=== PATIENT | female | born 1970 | race African-American/Black ===

== ENCOUNTER → 2016-10-25 | Outpatient (CLI) | payer OTHER ==
[2016-10-25 08:05] LABS: ALBUMIN 3.4 g/dL (3.4-5.0); ALBUMIN/GLOBULIN RATIO 0.6 (1.0-1.7); CREATININE 1.2 mg/dL (0.6-1.0); GFR 58.5; TOTAL BILIRUBIN 0.3 mg/dL (0.2-1.0); TOTAL PROTEIN 8.8 g/dL (6.4-8.2)
[2016-10-25 08:09] LABS: CHOLESTEROL/HDL RATIO 3.7
== END | disposition home or self-care (01) ==
LOC: LAB 07:32
PROVIDERS: ATTEND Family Medicine
DX: E11.9 Type 2 diabetes mellitus without complications (principal)
CPT/HCPCS: 36415; 80053; 80061; 83036

== ENCOUNTER → 2016-12-13 | Outpatient (CLI) | payer OTHER ==
--- NOTE | 2016-12-13 08:39 | RAD ---
Indication:Right flank pain Grayscale images of the abdomen were obtained. Comparison none. Note is made of a CT examination of the abdomen and pelvis 10 years ago Liver:No focal mass lesion is seen in the visualized liver Gallbladder:Normal. The common bile duct diameter of approximately 4 mm is normal Spleen:Normal Pancreas:As visualized normal Kidneys:Normal Abdominal aorta and IVC:Normal Ancillary findings:None Impression:Normal study
== END | disposition home or self-care (01) ==
LOC: US 07:02
PROVIDERS: ATTEND Family Medicine
DX: R10.9 Unspecified abdominal pain (principal)
CPT/HCPCS: 76700

== ENCOUNTER 2017-02-06 08:56 | Emergency (ER) | payer OTHER ==
[~2017-02-06] VITALS: Ht 152.4 cm; Wt 92.1 kg
[2017-02-06] MEDS ORDERED: LIDOCAINE 1% / SOD BICARB 8.4% 20 ML VIAL. IJ ONE (09:20)
--- NOTE | 2017-02-06 09:25 | PHYS DOC ---
Past Medical History Past Medical History: Diabetes-Type II, Hypertension Past Surgical History: Hysterectomy Alcohol Use: None Drug Use: None Adult General Chief Complaint Chief Complaint: ABSCESS HPI HPI Patient is a 46 year old female who presents with complaint of an abscess on the right inner thigh. Patient states that this has been present for the past 3 days. Patient states that she has been applying warm compresses to the area but states that pain and swelling have been getting worse since onset. Patient states she has history of diabetes and is concerned about skin infection. Patient came to the emergency department as she feels that her abscess needs to be drained at this time. Patient has had no fevers, chills, nausea, or vomiting associated with her symptoms. Patient rates her pain 7 out of 10. Review of Systems Review of Systems Constitutional: Denies fever or chills [] Eyes: Denies change in visual acuity, redness, or eye pain [] HENT: Denies nasal congestion or sore throat [] Respiratory: Denies cough or shortness of breath [] Cardiovascular: Denies chest pain or edema [] GI: Denies abdominal pain, nausea, vomiting, bloody stools or diarrhea [] : Denies dysuria or hematuria [] Musculoskeletal: Denies back pain or joint pain [] Integument: Right thigh abscess [] Neurologic: Denies headache, focal weakness or sensory changes [] Current Medications Current Medications Current Medications Medications (Trade) Dose Ordered Sig/Clau Start Time Stop Time Status Last Admin Dose Admin Lidocaine/Sodium Bicarbonate (Buffered Lidocaine 1%) 20 ml STK-MED ONCE 02/06/17 09:20 02/06/17 09:21 DC Allergies Allergies Allergies Coded Allergies Type Severity Reaction Last Updated Verified codeine Allergy Unknown 02/06/17 Yes Physical Exam Physical Exam Constitutional: Alert, afebrile, no acute distress. [] HENT: Normocephalic, atraumatic, bilateral external ears normal, oropharynx moist, no oral exudates, nose normal. [] Eyes: PERRLA, EOMI, conjunctiva normal, no discharge. [] Neck: Normal range of motion, no tenderness, supple, no stridor. [] Cardiovascular:Heart rate regular rhythm, no murmur [] Lungs & Thorax: Bilateral breath sounds clear to auscultation [] Abdomen: Bowel sounds normal, soft, no tenderness, no masses, no pulsatile masses. [] Skin: Warm, dry, 2 cm swollen indurated lesion that is tender to palpation on right medial thigh no fluctuance. [] Back: No tenderness, no CVA tenderness. [] Extremities: No tenderness, no cyanosis, no clubbing, ROM intact, no edema. [] Neurologic: Alert and oriented X 3, normal motor function, normal sensory function, no focal deficits noted. [] Current Patient Data Vital Signs Vital Signs Date Time Temp Pulse Resp B/P (MAP) Pulse Ox O2 Delivery O2 Flow Rate FiO2 02/06/17 09:00 100.1 102 16 96 Room Air 100.1 EKG EKG Not performed [] Radiology/Procedures Radiology/Procedures Not performed [] Course & Med Decision Making Course & Med Decision Making Pertinent Labs and Imaging studies reviewed. (See chart for details) After evaluating the patient, I gave her 2 options for treatment including antibiotics with follow-up in 2 days for reevaluation after maturation of abscess versus incision and drainage today. After carefully wearing her options , the patient asked that we perform incision and drainage on her abscess today. The abscess was drained as outlined in the procedure note. Patient started on Bactrim therapy. Advise follow-up in 2-[address] Healy for reevaluation and removal of packing. Advised return to the emergency department for any worsening symptoms. Patient voiced understanding and in agreement with treatment plan. Dragon Disclaimer Dragon Disclaimer This electronic medical record was generated, in whole or in part, using a voice recognition dictation system. Incision and Drainage Indication: abscess Procedure: The patient was positioned appropriately. Local anesthesia was achieved with injection of buffered lidocaine 1%. An incision was then made over the apex of the lesion and drainage of 1 mL of purulent material was expressed. The drainage cavity was packed with iodoform gauze. The patients tetanus status updated as needed. The patient tolerated the procedure well. Complications: none. Departure Departure Impression: Primary Impression: Abscess of right thigh Disposition: 01 HOME, SELF-CARE Condition: IMPROVED Referrals: DAVID HEALY MD (PCP) Patient Instructions: Abscess, Care After Additional Instructions: Follow-up in 2-[address] Healy for reevaluation and removal of your wound packing. If your packing comes out on its own, do not replace it. Place a clean bandage over the wound site until your follow-up appointment. Return to the emergency department for any worsening symptoms. Scripts Sulfamethoxazole/Trimethoprim (BACTRIM DS TABLET) 1 Each Tablet 1 TAB PO BID, #20 TAB Prov: LOLLY TAYLOR MD 02/06/17 LOLLY TAYLOR MD Feb 06, 2017 09:25
[2017-02-06] MEDS ORDERED: SULF1TAB24 PO (10:01)
[2017-02-06 10:06] VITALS: BP 176/83
[2017-02-08] MEDS ORDERED: AMLO1CAP10 PO (14:37)
[2017-02-08] MEDS ORDERED: ATEN50TA PO (14:37)
[2017-02-08] MEDS ORDERED: POTA20TA82 PO (14:37)
[2017-02-08] MEDS ORDERED: TRIA1TAB3 PO (14:37)
[2017-02-08] MEDS ORDERED: INSU100V13 SQ (14:37)
[2017-02-08] MEDS ORDERED: INSU100I17 SQ (14:37)
== END 2017-02-06 10:07 | disposition home or self-care (01) ==
LOC: ER 08:56
DX: L02.415 Cutaneous abscess of right lower limb (principal); E11.9 Type 2 diabetes mellitus without complications; I10 Essential (primary) hypertension; Z90.710 Acquired absence of both cervix and uterus; Z88.5 Allergy status to narcotic agent
CPT/HCPCS: 10060; 99283-25

== ENCOUNTER 2017-12-30 13:16 | Emergency (ER) | payer OTHER ==
[2017-12-30] MEDS: LIDOCAINE WITH 8.4% SOD BICARB 3 ML DISP.SYRIN. INJ (14:30)
[2017-12-30] MEDS: DIPHTH,PERTUSS(ACELL),TET TOX 0.5 ML DISP.SYRIN. VAX IM (14:31)
== END 2017-12-30 14:36 | disposition home or self-care (01) ==
LOC: ER 13:16
DX: S31.821A Laceration without foreign body of left buttock, initial encounter (principal); E11.9 Type 2 diabetes mellitus without complications; E87.6 Hypokalemia; I10 Essential (primary) hypertension; Z88.5 Allergy status to narcotic agent; W26.0XXA Contact with knife, initial encounter; Y93.89 Activity, other specified; Y92.89 Other specified places as the place of occurrence of the external cause; Y99.8 Other external cause status
CPT/HCPCS: 12002; 73502; 90471; 90715; 99284

== ENCOUNTER → 2018-01-02 | Outpatient (CLI) | payer OTHER ==
[2018-01-02 08:03] LABS: ALBUMIN 3.7 g/dL (3.4-5.0); ALBUMIN/GLOBULIN RATIO 0.7 (1.0-1.7); ALK PHOS 77 U/L (46-116); ALT (SGPT) 28 U/L (14-59); ANION GAP 9 (6-14); AST (SGOT) 20 U/L (15-37); BLOOD UREA NITROGEN 12 mg/dL (7-20); BUN/CREATININE RATIO 9 (6-20); CALCIUM 8.6 mg/dL (8.5-10.1); CARBON DIOXIDE 28 mmol/L (21-32); CHLORIDE 102 mmol/L (98-107); CHOLESTEROL 202 mg/dL (0-200); CREATININE 1.3 mg/dL (0.6-1.0); GFR 53.1; GLUCOSE 222 mg/dL (70-99); HDLC 46 mg/dL (40-60); LDLC 128 mg/dL (0-100); NON-HDL CHOLESTEROL 156 mg/dL (0-129); POTASSIUM 3.4 mmol/L (3.5-5.1); SODIUM 139 mmol/L (136-145); TOTAL BILIRUBIN 0.3 mg/dL (0.2-1.0); TOTAL PROTEIN 9.1 g/dL (6.4-8.2); TRIGLYCERIDES 141 mg/dL (0-150); VLDLC 28 mg/dL (0-40)
[2018-01-02 08:04] LABS: CHOLESTEROL/HDL RATIO 4.4
[2018-01-03 04:17] LABS: HEMOGLOBIN A1C 6.9 % (4.8-5.6)
== END | disposition home or self-care (01) ==
LOC: LAB 07:28
DX: E11.9 Type 2 diabetes mellitus without complications (principal); E78.5 Hyperlipidemia, unspecified
CPT/HCPCS: 36415; 80053; 80061; 83036

== ENCOUNTER → 2018-07-03 | Outpatient (CLI) | payer OTHER ==
[2017-12-30 13:20] VITALS: BP 187/93
[~2018-07-03] MED LIST: AMLO1CAP10 PO; AMOX1TAB61 PO; ATEN50TA PO; INSU100I17 SQ; INSU100V13 SQ; POTA20TA82 PO; SULF1TAB24 PO; TRIA1TAB3 PO
[2018-07-03 08:03] LABS: BASO # 0.1 x10^3/uL (0.0-0.2); BASO % 1 % (0-3); EOS # 0.2 x10^3/uL (0.0-0.7); EOS % 3 % (0-3); HEMATOCRIT 41.6 % (36.0-47.0); LYMPH # 3.7 x10^3/uL (1.0-4.8); LYMPH % 53 % (24-48); MEAN CORPUSCULAR HEMOGLOBIN 30 pg (25-35); MEAN CORPUSCULAR HGB CONC 34 g/dL (31-37); MEAN CORPUSCULAR VOLUME 90 fL (79-100); MONO # 0.7 x10^3/uL (0.0-1.1); MONO % 10 % (0-9); NEUT # 2.3 x10^3uL (1.8-7.7); NEUT % 34 % (31-73); PLATELET COUNT 272 x10^3/uL (140-400); RED CELL DISTRIBUTION WIDTH 16.2 % (11.5-14.5); WHITE BLOOD COUNT 6.9 x10^3/uL (4.0-11.0)
[2018-07-03 08:25] LABS: ALBUMIN 3.3 g/dL (3.4-5.0); ALBUMIN/GLOBULIN RATIO 0.6 (1.0-1.7); CALCIUM 9.1 mg/dL (8.5-10.1); CREATININE 1.2 mg/dL (0.6-1.0); GFR 58.3; POTASSIUM 3.2 mmol/L (3.5-5.1); TOTAL BILIRUBIN 0.2 mg/dL (0.2-1.0); TOTAL PROTEIN 8.8 g/dL (6.4-8.2)
[2018-07-03 08:31] LABS: CHOLESTEROL/HDL RATIO 2.8
[2018-07-03 23:11] LABS: HEMOGLOBIN A1C 7.6 % (4.8-5.6)
== END | disposition home or self-care (01) ==
LOC: LAB 07:34
PROVIDERS: ATTEND Family Medicine
DX: E11.9 Type 2 diabetes mellitus without complications (principal); E78.5 Hyperlipidemia, unspecified
CPT/HCPCS: 36415; 80053; 80061; 83036; 85025

== ENCOUNTER 2018-07-16 20:34 | Observation (INO) | payer OTHER ==
[~2018-07-16] VITALS: Ht 152.4 cm; Wt 93.9 kg
[2018-07-16] MEDS ORDERED: IV NORMAL SALINE 1000ML BAG 1,000 ML IV ONE (21:15)
--- NOTE | 2018-07-16 21:19 | PHYS DOC ---
Past Medical History Past Medical History: Diabetes-Type II, Hypertension Additional Past Medical Histor: Hypokalemia Past Surgical History: Other Additional Past Surgical Histo: Thigh Alcohol Use: Rarely Drug Use: None Adult General Chief Complaint Chief Complaint: FLANK PAIN HPI HPI 47-year-old female presents to ER with complaints of mid to left side abdominal pain which is been ongoing over the past 3 weeks. Patient reports pain has been gradually worsening and her abdomen feels more distended. Patient reports symptoms started on 06/27/18 a day after her father . Patient reports pain is "pinching" in nature and is constant. Patient reports current pain at 9/10. Patient states she does have increased pain after eating. She denies any nausea or vomiting. Patient reports she had regular bowel movement today. Patient reports she has had some difficulty starting her urination however denies dysuria or hematuria. She reports on Tuesday Dr. Healy her primary care physician changed her blood pressure medication increasing her atenolol to 100 mg and DC'd her Triamterene/HCTZ. Patient denies any chest pain , palpitations, or shortness of air. Patient denies fever, urinary symptoms, or vaginal issues. Patient reports history of hysterectomy. Bilateral blood sugar during initial exam left 184/88 right 183/80. Patient reports last blood sugar at home was 130. Review of Systems Review of Systems Constitutional: Denies fever or chills. Eyes: Denies change in visual acuity, redness, or eye pain [] HENT: Denies nasal congestion or sore throat [] Respiratory: Denies cough or shortness of breath [] Cardiovascular: No chest pain or palpitations GI: Denies nausea, vomiting, bloody stools or diarrhea. Reports mid to left side abdominal pain with abdominal distention. : Denies dysuria or hematuria. Reports difficulty initiating urination. Musculoskeletal: Denies neck pain or joint pain. Reports abdominal pain does radiate into left flank area Integument: Denies rash, swelling or skin lesions [] Neurologic: Denies headache, focal weakness or sensory changes [] Endocrine: Denies polyuria or polydipsia [] All other systems were reviewed and found to be within normal limits, except as documented in this note. Current Medications Current Medications Current Medications Medications (Trade) Dose Ordered Sig/Clau Start Time Stop Time Status Last Admin Dose Admin Info (CONTRAST GIVEN -- Rx MONITORING) 1 each PRN DAILY PRN 07/16/18 22:00 07/18/18 11:14 DC Iohexol (Omnipaque 300 Mg/ml) 75 ml 1X ONCE 07/16/18 22:00 07/16/18 22:01 DC 07/16/18 22:08 75 ML Morphine Sulfate (Morphine Sulfate) 4 mg PRN Q3HRS PRN 07/16/18 23:15 07/17/18 23:14 DC 07/16/18 23:30 4 MG Potassium Chloride (Klor-Con) 40 meq 1X ONCE 07/16/18 23:15 07/16/18 23:16 DC 07/16/18 23:26 40 MEQ Sodium Chloride 1,000 ml @ 100 mls/hr Q10H 07/16/18 23:00 07/17/18 22:59 DC 07/17/18 17:34 100 MLS/HR Allergies Allergies Allergies Coded Allergies Type Severity Reaction Last Updated Verified codeine Adverse Reaction Intermediate Hallucinations 02/08/17 Yes Physical Exam Physical Exam Constitutional: Well developed, well nourished, no acute distress, non-toxic appearance. Patient became tearful during initial examination. HENT: Normocephalic, atraumatic, mucous membranes pink/dry, no oral exudates, nose normal. [] Eyes: Pupils equal, conjunctiva normal, no discharge. [] Neck: Normal range of motion, no tenderness, supple, no stridor. [] Cardiovascular: Heart rate regular rhythm, no murmur [] Lungs & Thorax: Bilateral breath sounds clear to auscultation. Resp. equal/ nonlabored Abdomen: Bowel sounds normal, soft distended abd- no rigidity, no tenderness, no masses, no pulsatile masses. [] Skin: Warm, dry, no erythema, no rash. [] Back: No tenderness, mild lt side flank pain Extremities: No tenderness, no cyanosis, no clubbing, ROM intact, no edema. [] Neurologic: Alert and oriented X 3, normal motor function, normal sensory function, no focal deficits noted. [] Psychologic: Affect normal, judgement normal, mood normal. She reports she has had some increased anxiety since her father on 06/26/13. She reports anxiety has improved after receiving sleep medication from her primary care physician. She denies any suicidal ideations or uncontrollable behavior. Current Patient Data Vital Signs Vital Signs Date Time Temp Pulse Resp B/P (MAP) Pulse Ox O2 Delivery O2 Flow Rate FiO2 07/16/18 23:00 87 21 160/76 (104) 93 Room Air 07/16/18 20:52 98.7 98.7 Lab Values Laboratory Tests Test 07/16/18 20:42 07/16/18 21:06 Urine Collection Type Unknown Urine Color Yellow Urine Clarity Clear Urine pH 5.5 Urine Specific [place] 1.015 Urine Protein Negative mg/dL (NEG-TRACE) Urine Glucose (UA) Negative mg/dL (NEG) Urine Ketones (Stick) Negative mg/dL (NEG) Urine Blood Small (NEG) Urine Nitrite Negative (NEG) Urine Bilirubin Negative (NEG) Urine Urobilinogen Dipstick 0.2 mg/dL (0.2 mg/dL) Urine Leukocyte Esterase Negative (NEG) Urine RBC Occ /HPF (0-2) Urine WBC Occ /HPF (0-4) Urine Squamous Epithelial Cells Many /LPF Urine Bacteria Moderate /HPF (0-FEW) Urine Mucus Mod /LPF White Blood Count 8.8 x10^3/uL (4.0-11.0) Red Blood Count 4.52 x10^6/uL (3.50-5.40) Hemoglobin 13.7 g/dL (12.0-15.5) Hematocrit 40.3 % (36.0-47.0) Mean Corpuscular Volume 89 fL (79-100) Mean Corpuscular Hemoglobin 30 pg (25-35) Mean Corpuscular Hemoglobin Concent 34 g/dL (31-37) Red Cell Distribution Width 15.8 % (11.5-14.5) H Platelet Count 261 x10^3/uL (140-400) Neutrophils (%) (Auto) 62 % (31-73) Lymphocytes (%) (Auto) 30 % (24-48) Monocytes (%) (Auto) 7 % (0-9) Eosinophils (%) (Auto) 1 % (0-3) Basophils (%) (Auto) 1 % (0-3) Neutrophils # (Auto) 5.4 x10^3uL (1.8-7.7) Lymphocytes # (Auto) 2.7 x10^3/uL (1.0-4.8) Monocytes # (Auto) 0.6 x10^3/uL (0.0-1.1) Eosinophils # (Auto) 0.1 x10^3/uL (0.0-0.7) Basophils # (Auto) 0.0 x10^3/uL (0.0-0.2) Sodium Level 139 mmol/L (136-145) Potassium Level 2.7 mmol/L (3.5-5.1) *L Chloride Level 102 mmol/L (98-107) Carbon Dioxide Level 27 mmol/L (21-32) Anion Gap 10 (6-14) Blood Urea Nitrogen 10 mg/dL (7-20) Creatinine 1.2 mg/dL (0.6-1.0) H Estimated GFR (Cockcroft-Gault) 58.3 BUN/Creatinine Ratio 8 (6-20) Glucose Level 88 mg/dL (70-99) Calcium Level 9.0 mg/dL (8.5-10.1) Total Bilirubin 0.2 mg/dL (0.2-1.0) Aspartate Amino Transferase (AST) 20 U/L (15-37) Alanine Aminotransferase (ALT) 32 U/L (14-59) Alkaline Phosphatase 71 U/L (46-116) Troponin I Quantitative < 0.017 ng/mL (0.000-0.055) Total Protein 9.0 g/dL (6.4-8.2) H Albumin 3.6 g/dL (3.4-5.0) Albumin/Globulin Ratio 0.7 (1.0-1.7) L Lipase 411 U/L (73-393) H Laboratory Tests 07/16/18 21:06 Laboratory Tests 07/16/18 21:06 Microbiology 07/16/18 Urine Culture - Final, Complete 07/16/18 Urine Culture Result 1 (PENELOPE) - Final, Complete EKG EKG EKG obtained at 2117 Interpreted by ER physician Sinus Rhythm Prolonged QT Rate 85 No STEMI Radiology/Procedures Radiology/Procedures PROCEDURE: CT ABD PELV W/ IV CONTRST ONLY CT abdomen and pelvis with IV contrast 07/16/2018. Reason for exam: Left-sided pain. CT images were made through the abdomen and pelvis using an infusion of 60 mL Omnipaque 300. No oral contrast was given. Exposure: One or more of the following individualized dose reduction techniques were utilized for this examination: 1. Automated exposure control 2. Adjustment of the mA and/or kV according to patient size 3. Use of iterative reconstruction technique. FINDINGS: The lung bases are clear. The liver and spleen are homogeneous in density and normal in configuration. Both kidneys enhance with contrast. No mass or obstruction is seen. The adrenal glands are not enlarged. No pancreatic mass or localized fluid collection is seen. There is mild inflammation surrounding the body and tail of the pancreas, suggesting pancreatitis. The pancreas appears to enhance homogeneously. No retroperitoneal or mesenteric adenopathy is seen. There is no apparent abdominal mass or other inflammatory process. Images through the pelvis show no abnormality of the distal ureters or bladder. No pelvic or inguinal adenopathy is seen. There is no separate pelvic mass or other inflammatory process. IMPRESSION: Findings suggest mild pancreatitis centered at the body and tail of the pancreas. Electronically signed by: Angely Duenas Jr., MD (07/16/2018 10:24 PM) [facility] DICTATED and SIGNED BY: ANGELY DUENAS Jr, MD DATE: 07/16/182221 Course & Med Decision Making Course & Med Decision Making Pertinent Labs and Imaging studies reviewed. (See chart for details) 2235: Discussed test results with pt- mild pancreatitis on CT abd/pelvis and labs with K+ 2.7- which will be replaced with 40meq PO K+ in ER and lipase 411. EKG with no acute ST elevation/STEMI and troponin <0.017. IV flds have been given while test were pending. Pt became tearful discussing home discharge plans - she has concerns on being discharged and is preferring admission for further monitoring/care. Pt has been stable/nontoxic in appearance but has been quite emotional during discussions. She is wanting her PCP called to discuss admit vs home discharge and is requesting additional dose of pain med as her abd pain has increased. She has had no active vomiting episodes while in ER. Will call Dr. Healy and discussed pt's case. 2245: Spoke with Dr. Healy and discussed pt's case and she is agreeable with admit plan. Will order a.m. labs and IV flds/pain meds with admit orders. Will order additional dose of PO K+. Dragon Disclaimer Dragon Disclaimer This electronic medical record was generated, in whole or in part, using a voice recognition dictation system. Departure Departure Impression: Primary Impression: Pancreatitis Additional Impression: Hypokalemia Disposition: ADMITTED INPATIENT Admitting Physician: Serena Healy Condition: STABLE Referrals: SERENA HEALY MD (PCP) Scripts Amlodipine Besylate/Benazepril (AMLODIPINE-BENAZEPRIL 5-20 MG) 1 Each Capsule 2 CAP PO DAILY for HTN, #30 CAP 5 Refills Prov: SERENA HEALY MD 07/17/18 Insulin Glargine,Hum.rec.anlog (LANTUS SOLOSTAR) 100 Unit/1 Ml Insuln.pen 40 UNIT SQ QHS for DM, #15 ML 3 Refills Prov: SERENA HEALY MD 07/17/18 Problem Qualifiers ROB BIRD CIRCUIT RECORDER Jul 16, 2018 21:18
[2018-07-16 21:27] LABS: BASO % 1 % (0-3); EOS # 0.1 x10^3/uL (0.0-0.7); EOS % 1 % (0-3); HEMATOCRIT 40.3 % (36.0-47.0); HEMOGLOBIN 13.7 g/dL (12.0-15.5); LYMPH # 2.7 x10^3/uL (1.0-4.8); LYMPH % 30 % (24-48); MEAN CORPUSCULAR HEMOGLOBIN 30 pg (25-35); MEAN CORPUSCULAR HGB CONC 34 g/dL (31-37); MEAN CORPUSCULAR VOLUME 89 fL (79-100); MONO # 0.6 x10^3/uL (0.0-1.1); MONO % 7 % (0-9); NEUT # 5.4 x10^3uL (1.8-7.7); NEUT % 62 % (31-73); PLATELET COUNT 261 x10^3/uL (140-400); RED BLOOD COUNT 4.52 x10^6/uL (3.50-5.40); RED CELL DISTRIBUTION WIDTH 15.8 % (11.5-14.5); WHITE BLOOD COUNT 8.8 x10^3/uL (4.0-11.0)
[2018-07-16 21:28] LABS: BILIRUBIN,URINE NEGATIVE (NEG); CLARITY,URINE CLEAR; COLOR,URINE YELLOW; NITRITE,URINE NEGATIVE (NEG); PH,URINE 5.5; PROTEIN,URINE NEGATIVE (NEG-TRACE); UROBILINOGEN,URINE 0.2 mg/dL (0.2 mg/dL)
[2018-07-16 21:32] LABS: BACTERIA,URINE MODERATE /HPF (0-FEW); RBC,URINE OCC /HPF (0-2); SQUAMOUS EPITHELIAL CELL,UR MANY /LPF; WBC,URINE OCC /HPF (0-4)
[2018-07-16 21:46] LABS: ALBUMIN 3.6 g/dL (3.4-5.0); ALBUMIN/GLOBULIN RATIO 0.7 (1.0-1.7); CREATININE 1.2 mg/dL (0.6-1.0); GFR 58.3; TOTAL BILIRUBIN 0.2 mg/dL (0.2-1.0)
[2018-07-16 21:47] LABS: POTASSIUM 2.7 mmol/L (3.5-5.1)
[2018-07-16] MEDS ORDERED: IOHEXOL 300 MG/ML 100ML VIAL. IV ONE (22:00)
[2018-07-16] MEDS ORDERED: CONTRAST GIVEN. MC PRN (22:00)
--- NOTE | 2018-07-16 22:28 | RAD ---
CT abdomen and pelvis with IV contrast 07/16/2018. Reason for exam: Left-sided pain. CT images were made through the abdomen and pelvis using an infusion of 60 mL Omnipaque 300. No oral contrast was given. Exposure: One or more of the following individualized dose reduction techniques were utilized for this examination: 1. Automated exposure control 2. Adjustment of the mA and/or kV according to patient size 3. Use of iterative reconstruction technique. FINDINGS: The lung bases are clear. The liver and spleen are homogeneous in density and normal in configuration. Both kidneys enhance with contrast. No mass or obstruction is seen. The adrenal glands are not enlarged. No pancreatic mass or localized fluid collection is seen. There is mild inflammation surrounding the body and tail of the pancreas, suggesting pancreatitis. The pancreas appears to enhance homogeneously. No retroperitoneal or mesenteric adenopathy is seen. There is no apparent abdominal mass or other inflammatory process. Images through the pelvis show no abnormality of the distal ureters or bladder. No pelvic or inguinal adenopathy is seen. There is no separate pelvic mass or other inflammatory process. IMPRESSION: Findings suggest mild pancreatitis centered at the body and tail of the pancreas. Electronically signed by: Florencio Duenas Jr., MD (07/16/2018 10:24 PM) [facility]
[2018-07-16] MEDS ORDERED: MORPHINE SULFATE 4 MG/ML VIAL. IV ONE (23:00)
[2018-07-16] MEDS ORDERED: POTASSIUM CHLORIDE 20 MEQ TABLET.ER. PO ONE (23:15)
[2018-07-16] MEDS ORDERED: MORPHINE SULFATE 4 MG/ML VIAL. IV PRN (23:15)
[2018-07-16] MEDS: IV NORMAL SALINE 1000ML BAG 1,000 ML IV SCH (23:26)
[2018-07-17] VITALS (7 sets, daily range): BP systolic 128–152; BP diastolic 65–81
[2018-07-17] MEDS ORDERED: ATEN100T PO (01:07)
[2018-07-17] MEDS ORDERED: POTA20TA4 PO (01:11)
[2018-07-17] MEDS ORDERED: GABA-585 PO (01:11)
[2018-07-17] MEDS ORDERED: ZOLP5TAB5 PO (01:11)
[2018-07-17] MEDS ORDERED: ATOR10TA60 PO (01:11)
[2018-07-17] MEDS ORDERED: POTASSIUM CHLORIDE 20 MEQ TABLET.ER. PO ONE (02:00)
--- NOTE | 2018-07-17 06:37 | EKG ---
[facility] [address] [place] [address] Test Date: 2018-07-16 Test Time: 21:17:06 Pat Name: STU LEON Department: Room: 420 Gender: F Steward/Stewardess Smoke Room: : 1970 Requested By: ROB BIRD Order Number: [id number] Reading MD: Wayne Box Measurements Intervals Molt Rate: 85 P: 52 NM: 168 QRS: 6 QRSD: 84 T: 34 QT: 442 QTc: 526 Interpretive Statements SINUS RHYTHM PROLONGED QT Electronically Signed On 07-17-2018 9:16:50 DUE DILIGENCE COORDINATOR by Wayne Box
[2018-07-17 07:22] LABS: BASO % 1 % (0-3); EOS % 0 % (0-3); HEMATOCRIT 39.8 % (36.0-47.0); HEMOGLOBIN 13.5 g/dL (12.0-15.5); LYMPH # 1.5 x10^3/uL (1.0-4.8); LYMPH % 22 % (24-48); MEAN CORPUSCULAR HEMOGLOBIN 31 pg (25-35); MEAN CORPUSCULAR HGB CONC 34 g/dL (31-37); MEAN CORPUSCULAR VOLUME 90 fL (79-100); MONO # 0.3 x10^3/uL (0.0-1.1); MONO % 5 % (0-9); NEUT # 4.9 x10^3uL (1.8-7.7); NEUT % 73 % (31-73); PLATELET COUNT 242 x10^3/uL (140-400); RED BLOOD COUNT 4.42 x10^6/uL (3.50-5.40); WHITE BLOOD COUNT 6.8 x10^3/uL (4.0-11.0)
[2018-07-17 07:40] LABS: ALBUMIN 3.1 g/dL (3.4-5.0); ALBUMIN/GLOBULIN RATIO 0.6 (1.0-1.7); CALCIUM 8.4 mg/dL (8.5-10.1); CREATININE 1.1 mg/dL (0.6-1.0); GFR 64.4; POTASSIUM 3.6 mmol/L (3.5-5.1); TOTAL BILIRUBIN 0.4 mg/dL (0.2-1.0); TOTAL PROTEIN 8.1 g/dL (6.4-8.2)
[2018-07-17] MEDS ORDERED: INSU100I13 SQ (08:29)
[2018-07-17] MEDS ORDERED: AMLO1CAP10 PO (08:29)
--- NOTE | 2018-07-17 08:39 | PDOC ---
PROGRESS NOTES Subjective Subjective Patient reports L.sided abdominal pain still present but much improved with pain medication. Objective Objective Vital Signs Date Time Temp Pulse Resp B/P (MAP) Pulse Ox O2 Delivery O2 Flow Rate FiO2 07/17/18 03:17 97.9 79 20 128/73 (91) 95 Room Air 97.9 Intake and Output 07/17/18 07:00 Intake Total 600 ml Balance 600 ml Intake Oral 0 ml IV Total 300 ml Other 300 ml # Voids 2 Physical Exam Abdomen: Normal bowel sounds, Soft, Other ( mild L. sided abdominal TTP without guarding or rebound) Heart: Regular rate Extremities: No edema General: Alert, Oriented X3, No acute distress Lungs: Clear to auscultation Assessment Assessment Problems Medical Problems: (1) Hypokalemia Status: Acute (2) Pancreatitis Status: Acute Plan Plan of Care 1. Pancreatitis - lab improved overnight with NPO and IVF. Patient does not drink alcohol to excess and her triglycerides were WNL on last office lab. Patient does still have her gallbladder, so abdominal U/S ordered and GI consulted to help with further tx. Continue NPO with ice chips. IV pain medication as needed. Does take low dose statin, will hold at this time. 2. DM2 - glucose elevated this AM as patient did not receive her HS insulin last night. Home insulins ordered. 3. HTN - resume home meds. 4. hypokalemia - improved on lab today. Resume her usual po supplement. 5. insomnia - well controlled with Ambien, continue. Comment Review of Relevant I have reviewed the following items anushka (where applicable) has been applied. Labs Laboratory Tests Test 07/16/18 20:42 07/16/18 21:06 07/17/18 06:25 07/17/18 08:13 Urine Collection Type Unknown Urine Color Yellow Urine Clarity Clear Urine pH 5.5 Urine Specific [place] 1.015 Urine Protein Negative mg/dL (NEG-TRACE) Urine Glucose (UA) Negative mg/dL (NEG) Urine Ketones (Stick) Negative mg/dL (NEG) Urine Blood Small (NEG) Urine Nitrite Negative (NEG) Urine Bilirubin Negative (NEG) Urine Urobilinogen Dipstick 0.2 mg/dL (0.2 mg/dL) Urine Leukocyte Esterase Negative (NEG) Urine RBC Occ /HPF (0-2) Urine WBC Occ /HPF (0-4) Urine Squamous Epithelial Cells Many /LPF Urine Bacteria Moderate /HPF (0-FEW) Urine Mucus Mod /LPF White Blood Count 8.8 x10^3/uL (4.0-11.0) 6.8 x10^3/uL (4.0-11.0) Red Blood Count 4.52 x10^6/uL (3.50-5.40) 4.42 x10^6/uL (3.50-5.40) Hemoglobin 13.7 g/dL (12.0-15.5) 13.5 g/dL (12.0-15.5) Hematocrit 40.3 % (36.0-47.0) 39.8 % (36.0-47.0) Mean Corpuscular Volume 89 fL (79-100) 90 fL (79-100) Mean Corpuscular Hemoglobin 30 pg (25-35) 31 pg (25-35) Mean Corpuscular Hemoglobin Concent 34 g/dL (31-37) 34 g/dL (31-37) Red Cell Distribution Width 15.8 % (11.5-14.5) 16.0 % (11.5-14.5) Platelet Count 261 x10^3/uL (140-400) 242 x10^3/uL (140-400) Neutrophils (%) (Auto) 62 % (31-73) 73 % (31-73) Lymphocytes (%) (Auto) 30 % (24-48) 22 % (24-48) Monocytes (%) (Auto) 7 % (0-9) 5 % (0-9) Eosinophils (%) (Auto) 1 % (0-3) 0 % (0-3) Basophils (%) (Auto) 1 % (0-3) 1 % (0-3) Neutrophils # (Auto) 5.4 x10^3uL (1.8-7.7) 4.9 x10^3uL (1.8-7.7) Lymphocytes # (Auto) 2.7 x10^3/uL (1.0-4.8) 1.5 x10^3/uL (1.0-4.8) Monocytes # (Auto) 0.6 x10^3/uL (0.0-1.1) 0.3 x10^3/uL (0.0-1.1) Eosinophils # (Auto) 0.1 x10^3/uL (0.0-0.7) 0.0 x10^3/uL (0.0-0.7) Basophils # (Auto) 0.0 x10^3/uL (0.0-0.2) 0.0 x10^3/uL (0.0-0.2) Sodium Level 139 mmol/L (136-145) 139 mmol/L (136-145) Potassium Level 2.7 mmol/L (3.5-5.1) 3.6 mmol/L (3.5-5.1) Chloride Level 102 mmol/L (98-107) 103 mmol/L (98-107) Carbon Dioxide Level 27 mmol/L (21-32) 25 mmol/L (21-32) Anion Gap 10 (6-14) 11 (6-14) Blood Urea Nitrogen 10 mg/dL (7-20) 8 mg/dL (7-20) Creatinine 1.2 mg/dL (0.6-1.0) 1.1 mg/dL (0.6-1.0) Estimated GFR (Cockcroft-Gault) 58.3 64.4 BUN/Creatinine Ratio 8 (6-20) 7 (6-20) Glucose Level 88 mg/dL (70-99) 229 mg/dL (70-99) Calcium Level 9.0 mg/dL (8.5-10.1) 8.4 mg/dL (8.5-10.1) Total Bilirubin 0.2 mg/dL (0.2-1.0) 0.4 mg/dL (0.2-1.0) Aspartate Amino Transf (AST/SGOT) 20 U/L (15-37) 17 U/L (15-37) Alanine Aminotransferase (ALT/SGPT) 32 U/L (14-59) 25 U/L (14-59) Alkaline Phosphatase 71 U/L (46-116) 74 U/L (46-116) Troponin I Quantitative < 0.017 ng/mL (0.000-0.055) Total Protein 9.0 g/dL (6.4-8.2) 8.1 g/dL (6.4-8.2) Albumin 3.6 g/dL (3.4-5.0) 3.1 g/dL (3.4-5.0) Albumin/Globulin Ratio 0.7 (1.0-1.7) 0.6 (1.0-1.7) Lipase 411 U/L (73-393) 264 U/L (73-393) Glucose (Fingerstick) 216 mg/dL (70-99) Laboratory Tests Test 07/16/18 20:42 07/16/18 21:06 07/17/18 06:25 07/17/18 08:13 Urine Collection Type Unknown Urine Color Yellow Urine Clarity Clear Urine pH 5.5 Urine Specific [place] 1.015 Urine Protein Negative mg/dL (NEG-TRACE) Urine Glucose (UA) Negative mg/dL (NEG) Urine Ketones (Stick) Negative mg/dL (NEG) Urine Blood Small (NEG) Urine Nitrite Negative (NEG) Urine Bilirubin Negative (NEG) Urine Urobilinogen Dipstick 0.2 mg/dL (0.2 mg/dL) Urine Leukocyte Esterase Negative (NEG) Urine RBC Occ /HPF (0-2) Urine WBC Occ /HPF (0-4) Urine Squamous Epithelial Cells Many /LPF Urine Bacteria Moderate /HPF (0-FEW) Urine Mucus Mod /LPF White Blood Count 8.8 x10^3/uL (4.0-11.0) 6.8 x10^3/uL (4.0-11.0) Red Blood Count 4.52 x10^6/uL (3.50-5.40) 4.42 x10^6/uL (3.50-5.40) Hemoglobin 13.7 g/dL (12.0-15.5) 13.5 g/dL (12.0-15.5) Hematocrit 40.3 % (36.0-47.0) 39.8 % (36.0-47.0) Mean Corpuscular Volume 89 fL (79-100) 90 fL (79-100) Mean Corpuscular Hemoglobin 30 pg (25-35) 31 pg (25-35) Mean Corpuscular Hemoglobin Concent 34 g/dL (31-37) 34 g/dL (31-37) Red Cell Distribution Width 15.8 % (11.5-14.5) 16.0 % (11.5-14.5) Platelet Count 261 x10^3/uL (140-400) 242 x10^3/uL (140-400) Neutrophils (%) (Auto) 62 % (31-73) 73 % (31-73) Lymphocytes (%) (Auto) 30 % (24-48) 22 % (24-48) Monocytes (%) (Auto) 7 % (0-9) 5 % (0-9) Eosinophils (%) (Auto) 1 % (0-3) 0 % (0-3) Basophils (%) (Auto) 1 % (0-3) 1 % (0-3) Neutrophils # (Auto) 5.4 x10^3uL (1.8-7.7) 4.9 x10^3uL (1.8-7.7) Lymphocytes # (Auto) 2.7 x10^3/uL (1.0-4.8) 1.5 x10^3/uL (1.0-4.8) Monocytes # (Auto) 0.6 x10^3/uL (0.0-1.1) 0.3 x10^3/uL (0.0-1.1) Eosinophils # (Auto) 0.1 x10^3/uL (0.0-0.7) 0.0 x10^3/uL (0.0-0.7) Basophils # (Auto) 0.0 x10^3/uL (0.0-0.2) 0.0 x10^3/uL (0.0-0.2) Sodium Level 139 mmol/L (136-145) 139 mmol/L (136-145) Potassium Level 2.7 mmol/L (3.5-5.1) 3.6 mmol/L (3.5-5.1) Chloride Level 102 mmol/L (98-107) 103 mmol/L (98-107) Carbon Dioxide Level 27 mmol/L (21-32) 25 mmol/L (21-32) Anion Gap 10 (6-14) 11 (6-14) Blood Urea Nitrogen 10 mg/dL (7-20) 8 mg/dL (7-20) Creatinine 1.2 mg/dL (0.6-1.0) 1.1 mg/dL (0.6-1.0) Estimated GFR (Cockcroft-Gault) 58.3 64.4 BUN/Creatinine Ratio 8 (6-20) 7 (6-20) Glucose Level 88 mg/dL (70-99) 229 mg/dL (70-99) Calcium Level 9.0 mg/dL (8.5-10.1) 8.4 mg/dL (8.5-10.1) Total Bilirubin 0.2 mg/dL (0.2-1.0) 0.4 mg/dL (0.2-1.0) Aspartate Amino Transf (AST/SGOT) 20 U/L (15-37) 17 U/L (15-37) Alanine Aminotransferase (ALT/SGPT) 32 U/L (14-59) 25 U/L (14-59) Alkaline Phosphatase 71 U/L (46-116) 74 U/L (46-116) Troponin I Quantitative < 0.017 ng/mL (0.000-0.055) Total Protein 9.0 g/dL (6.4-8.2) 8.1 g/dL (6.4-8.2) Albumin 3.6 g/dL (3.4-5.0) 3.1 g/dL (3.4-5.0) Albumin/Globulin Ratio 0.7 (1.0-1.7) 0.6 (1.0-1.7) Lipase 411 U/L (73-393) 264 U/L (73-393) Glucose (Fingerstick) 216 mg/dL (70-99) Medications Current Medications Sodium Chloride 1,000 ml @ 1,000 mls/hr 1X ONCE IV Last administered on at 21:14; Start 07/16/18 at 21:15; Stop 07/16/18 at 22:14; Status DC Iohexol (Omnipaque 300 Mg/ml) 75 ml 1X ONCE IV Last administered on 07/16/18at 22:08; Start 07/16/18 at 22:00; Stop 07/16/18 at 22:01; Status DC Info (CONTRAST GIVEN -- Rx MONITORING) 1 each PRN DAILY PRN MC SEE COMMENTS; Start 07/16/18 at 22:00; Stop 07/18/18 at 21:59 Morphine Sulfate (Morphine Sulfate) 4 mg 1X ONCE IV Last administered on at 22:57; Start 07/16/18 at 23:00; Stop 07/16/18 at 23:01; Status DC Morphine Sulfate (Morphine Sulfate) 4 mg PRN Q3HRS PRN IV PAIN Last administered on 07/16/18at 23:30; Start 07/16/18 at 23:15; Stop 07/17/18 at 23:14 Sodium Chloride 1,000 ml @ 100 mls/hr Q10H IV Last administered on 07/16/18at 23:26; Start 07/16/18 at 23:00; Stop 07/17/18 at 22:59 Potassium Chloride (Klor-Con) 40 meq 1X ONCE PO Last administered on at 23:26; Start 07/16/18 at 23:15; Stop 07/16/18 at 23:16; Status DC Potassium Chloride (Klor-Con) 40 meq 1X ONCE PO Last administered on at 02:07; Start 07/17/18 at 02:00; Stop 07/17/18 at 02:01; Status DC Active Scripts Active Amlodipine-Benazepril 5-20 Mg (Amlodipine Besylate/Benazepril) 1 Each Capsule 2 Cap PO DAILY Lantus Solostar (Insulin Glargine,Hum.rec.anlog) 100 Unit/1 Ml Insuln.pen 40 Unit SQ QHS Novolog Flexpen (Insulin Aspart) 100 Unit/1 Ml Insuln.pen 30 Unit SQ TIDAC 30 Days Reported Atorvastatin Calcium 10 Mg Tablet 1 Tab PO DAILY Zolpidem Tartrate 5 Mg Tablet 1 Tab PO QHS Klor-Con M20 (Potassium Chloride) 20 Meq Tab.er.prt 1 Tab PO [id number] Atenolol 100 Mg Tablet 1 Tab PO DAILY Vitals/I & O Vital Sign - Last 24 Hours 07/16/18 07/16/18 07/16/18 07/16/18 20:52 21:00 21:30 22:00 Temp 98.7 98.7 Pulse 100 99 86 84 Resp 20 13 12 11 B/P (MAP) 183/80 (114) 184/88 (120) 146/73 (97) 180/78 (112) Pulse Ox 99 98 98 O2 Delivery Room Air Room Air Room Air Room Air 07/16/18 07/16/18 07/16/18 07/17/18 23:00 23:30 23:30 00:00 Pulse 87 90 80 Resp 21 18 20 22 B/P (MAP) 160/76 (104) 169/81 (110) 139/59 (85) Pulse Ox 93 99 93 O2 Delivery Room Air Room Air Room Air Room Air 07/17/18 07/17/18 07/17/18 00:15 01:46 03:17 Temp 98.0 97.9 98.0 97.9 Pulse 91 79 Resp 23 20 B/P (MAP) 143/71 (95) 128/73 (91) Pulse Ox 97 95 O2 Delivery Room Air Room Air Room Air Intake and Output 07/16/18 07/16/18 07/17/18 15:00 23:00 07:00 Intake Total 600 ml Balance 600 ml DAVID SHERWOOD MD Jul 17, 2018 08:39
[2018-07-17] MEDS ORDERED: LISINOPRIL 20 MG TABLET PO SCH (09:00)
[2018-07-17] MEDS ORDERED: BENAZEPRIL PO SCH (09:00)
[2018-07-17] MEDS ORDERED: AMLODIPINE BESYLATE PO SCH (09:00)
[2018-07-17] MEDS ORDERED: amLODIPine BESYLATE 5 MG TABLET PO SCH (09:00)
[2018-07-17] MEDS: INSULIN LISPRO 300 UNITS/3 ML INSULN.PEN. SQ SCH ×5 (09:00→17:38)
[2018-07-17] MEDS ORDERED: [UNRECOGNIZED DRUG - OTHER] PO SCH (09:00)
[2018-07-17] MEDS: ATENOLOL 50 MG TABLET. PO SCH (09:23)
[2018-07-17] MEDS: amLODIPine BESYLATE 10 MG TABLET PO SCH (09:24)
[2018-07-17] MEDS: POTASSIUM CHLORIDE 20 MEQ TABLET.ER. PO SCH ×3 (09:24→20:10)
[2018-07-17] MEDS: LISINOPRIL 20 MG TABLET PO SCH (09:25)
[2018-07-17] MEDS: IV NORMAL SALINE 1000ML BAG 1,000 ML IV SCH ×2 (09:25→17:34)
--- NOTE | 2018-07-17 10:31 | HP ---
ADMIT DATE: 07/16/2018 CHIEF COMPLAINT: Abdominal pain. HISTORY OF PRESENT ILLNESS: The patient is a 47-year-old female with insulin-dependent diabetes who presented to the Emergency Room with the above complaint. She had been experiencing a several-week history of [id number] intermittent left-sided abdominal pain. Her bowels had continued to move normally and she was just living with the discomfort. However, her pain abruptly worsened last evening and so she presented to the Emergency Room. Initial evaluation there included a CT of the abdomen, which showed some changes of acute pancreatitis. Her lipase was 411. Treatment was started and she was admitted for further care. PAST MEDICAL HISTORY: Diabetes mellitus type 2, insulin-dependent; hypertension; hyperlipidemia; chronic hypokalemia; allergic rhinitis; insomnia. PAST SURGICAL HISTORY: Hysterectomy. ALLERGIES: THE PATIENT IS ALLERGIC OR INTOLERANT TO CODEINE AND METFORMIN. HOME MEDICATIONS: Atorvastatin 10 mg daily, Lantus 40 units at bedtime, Flonase p.r.n., NovoLog 30-40 units t.i.d. a.c., amlodipine/benazepril 5/20 two capsules daily, atenolol 100 mg daily, potassium chloride 20 mEq t.i.d., Ambien 5 mg at bedtime. FAMILY HISTORY: Noncontributory. SOCIAL HISTORY: The patient is . She does not smoke cigarettes and she does not drink alcohol to excess. 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 REVIEW OF SYSTEMS: The patient denies fever or chills. She denies chest pain or palpitations. She denies cough or shortness of breath. She has already received her flu shot this fall. She has had intermittent abdominal pain as in the HPI, but denies diarrhea, constipation or emesis. She has had some increased stress in her life recently as her father and she has had a change of jobs here at [employer], but she feels she is doing okay with these things and the Ambien does help with sleep. PHYSICAL EXAMINATION: GENERAL: The patient is alert and oriented x 3, resting comfortably in bed in no acute distress. HEENT: PERRL, EOMI, sclerae clear. Oropharynx: Mucous membranes moist. NECK: Supple, without lymphadenopathy. CHEST: Clear to auscultation. CARDIOVASCULAR: Regular rhythm without murmur. ABDOMEN: Soft, normoactive bowel sounds are present. There is mild left-sided abdominal tenderness to palpation without guarding or rebound. EXTREMITIES: Without edema. ASSESSMENT AND PLAN: 1. Pancreatitis. The patient's lab has improved overnight with n.p.o. and IV fluids and her lipase is now within the normal range. She does not drink alcohol to excess and her triglycerides were within normal limits on our last office lab. She does still have her gallbladder, so an abdominal ultrasound has been ordered and GI has been consulted to help with further treatment. She does take a low dose statin. We will hold this at this time. Continue n.p.o. with ice chips and IV pain medication as needed. 2. Diabetes mellitus type 2. This has been well controlled with her insulins. We will continue these. 3. Hypertension. Resume home medication. 4. Hypokalemia. This is improved on lab today. We will resume her usual oral supplement for this. 5. Insomnia. This is well controlled with Ambien. Continue this as needed. DAVID SHERWOOD MD DR: SANA/roxann JOB#: [id number] / [id number] AYRA
--- NOTE | 2018-07-17 10:52 | RAD ---
Abdominal ultrasound, 07/17/2018: HISTORY: Pancreatitis The gallbladder is within normal limits in size. There is no sonographic evidence of cholelithiasis. The gallbladder sosa are not thickened. The common hepatic duct is of normal caliber. The liver demonstrates increased echogenicity in a diffuse pattern, most commonly due to fatty change. No hepatic mass is evident. The visualized portions of the pancreatic body show no abnormality. Other portions of the pancreas were obscured by overlying bowel. No abnormal peripancreatic fluid collection is seen. The upper abdominal aorta and inferior vena cava are unremarkable. These vessels were obscured distally by overlying bowel. The spleen is of normal size. No renal abnormality is detected. No free fluid is evident in the abdomen. IMPRESSION: 1. Increased hepatic echogenicity most commonly due to fatty change. 2. No other significant abnormality is detected. Electronically signed by: Victor Manuel Chaudhry MD (07/17/2018 10:48 AM) [facility]
--- NOTE | 2018-07-17 11:21 | PDOC2 ---
GI CONSULT Reason For Consult: Pancreatitis HPI: HPI: Pleasant 47 y/o female who works here at [employer]. Has had abd discomfort since (she remembers that day because her father the day before). Pain began in back (bilaterally), then moved to lower abdomen, and then "moved up" to settle in left abdomen and around periumbilical area. Pain is intermittent, cramping, and worse w/ eating. Associated w/ bloating. Labs significant for minimal elevation in lipase (411 - now normal). WBC, Hgb, and LFTs normal. Imaging suggestive of mild pancreatitis centered at the body and tail of the pancreas, normal GB. H/o frequent GERD symptoms when she was younger, less so now (attributes to being careful with diet). Did try a Pepcid yesterday - might have helped bloating. No dysphagia. No n/v. Has gained weight. No diarrhea or constipation. No hematochezia or melena. No previous EGD or colonoscopy. No GB, liver, or pancreas history. Only occasional NSAID use. No significant alcohol use. Father had renal issues but did have some sort of pancreas issue before . PMH: PMH: HTN, IDDM, GERD, nephrolithiasis, anxiety, hysterectomy (fibroids), I&D of right thigh FH: Family History: DM, Hypertension, Other (father - CKD, ulcer, ?pancreatitis) Social History: Smoke: No ALCOHOL: rare Drugs: None ROS: GEN: Denies fevers, chills, sweats HEENT: Denies blurred vision, sore throat CV: Denies chest pain RESP: Denies shortness of air, cough GI: Per HPI : Denies hematuria, dysuria ENDO: +weight gain NEURO: Denies confusion, dizziness MSK: Denies weakness, joint pain/swelling SKIN: Denies jaundice, pruritus Vitals: Vitals: Vital Signs Date Time Temp Pulse Resp B/P (MAP) Pulse Ox O2 Delivery O2 Flow Rate FiO2 07/17/18 09:25 87 136/81 07/17/18 08:00 Room Air 07/17/18 07:00 98.3 20 95 98.3 Labs: Labs: Laboratory Tests Test 07/16/18 20:42 07/16/18 21:06 07/17/18 06:25 07/17/18 08:13 Urine Collection Type Unknown Urine Color Yellow Urine Clarity Clear Urine pH 5.5 Urine Specific [place] 1.015 Urine Protein Negative mg/dL (NEG-TRACE) Urine Glucose (UA) Negative mg/dL (NEG) Urine Ketones (Stick) Negative mg/dL (NEG) Urine Blood Small (NEG) Urine Nitrite Negative (NEG) Urine Bilirubin Negative (NEG) Urine Urobilinogen Dipstick 0.2 mg/dL (0.2 mg/dL) Urine Leukocyte Esterase Negative (NEG) Urine RBC Occ /HPF (0-2) Urine WBC Occ /HPF (0-4) Urine Squamous Epithelial Cells Many /LPF Urine Bacteria Moderate /HPF (0-FEW) Urine Mucus Mod /LPF White Blood Count 8.8 x10^3/uL (4.0-11.0) 6.8 x10^3/uL (4.0-11.0) Red Blood Count 4.52 x10^6/uL (3.50-5.40) 4.42 x10^6/uL (3.50-5.40) Hemoglobin 13.7 g/dL (12.0-15.5) 13.5 g/dL (12.0-15.5) Hematocrit 40.3 % (36.0-47.0) 39.8 % (36.0-47.0) Mean Corpuscular Volume 89 fL (79-100) 90 fL (79-100) Mean Corpuscular Hemoglobin 30 pg (25-35) 31 pg (25-35) Mean Corpuscular Hemoglobin Concent 34 g/dL (31-37) 34 g/dL (31-37) Red Cell Distribution Width 15.8 % (11.5-14.5) 16.0 % (11.5-14.5) Platelet Count 261 x10^3/uL (140-400) 242 x10^3/uL (140-400) Neutrophils (%) (Auto) 62 % (31-73) 73 % (31-73) Lymphocytes (%) (Auto) 30 % (24-48) 22 % (24-48) Monocytes (%) (Auto) 7 % (0-9) 5 % (0-9) Eosinophils (%) (Auto) 1 % (0-3) 0 % (0-3) Basophils (%) (Auto) 1 % (0-3) 1 % (0-3) Neutrophils # (Auto) 5.4 x10^3uL (1.8-7.7) 4.9 x10^3uL (1.8-7.7) Lymphocytes # (Auto) 2.7 x10^3/uL (1.0-4.8) 1.5 x10^3/uL (1.0-4.8) Monocytes # (Auto) 0.6 x10^3/uL (0.0-1.1) 0.3 x10^3/uL (0.0-1.1) Eosinophils # (Auto) 0.1 x10^3/uL (0.0-0.7) 0.0 x10^3/uL (0.0-0.7) Basophils # (Auto) 0.0 x10^3/uL (0.0-0.2) 0.0 x10^3/uL (0.0-0.2) Sodium Level 139 mmol/L (136-145) 139 mmol/L (136-145) Potassium Level 2.7 mmol/L (3.5-5.1) 3.6 mmol/L (3.5-5.1) Chloride Level 102 mmol/L (98-107) 103 mmol/L (98-107) Carbon Dioxide Level 27 mmol/L (21-32) 25 mmol/L (21-32) Anion Gap 10 (6-14) 11 (6-14) Blood Urea Nitrogen 10 mg/dL (7-20) 8 mg/dL (7-20) Creatinine 1.2 mg/dL (0.6-1.0) 1.1 mg/dL (0.6-1.0) Estimated GFR (Cockcroft-Gault) 58.3 64.4 BUN/Creatinine Ratio 8 (6-20) 7 (6-20) Glucose Level 88 mg/dL (70-99) 229 mg/dL (70-99) Calcium Level 9.0 mg/dL (8.5-10.1) 8.4 mg/dL (8.5-10.1) Total Bilirubin 0.2 mg/dL (0.2-1.0) 0.4 mg/dL (0.2-1.0) Aspartate Amino Transf (AST/SGOT) 20 U/L (15-37) 17 U/L (15-37) Alanine Aminotransferase (ALT/SGPT) 32 U/L (14-59) 25 U/L (14-59) Alkaline Phosphatase 71 U/L (46-116) 74 U/L (46-116) Troponin I Quantitative < 0.017 ng/mL (0.000-0.055) Total Protein 9.0 g/dL (6.4-8.2) 8.1 g/dL (6.4-8.2) Albumin 3.6 g/dL (3.4-5.0) 3.1 g/dL (3.4-5.0) Albumin/Globulin Ratio 0.7 (1.0-1.7) 0.6 (1.0-1.7) Lipase 411 U/L (73-393) 264 U/L (73-393) Glucose (Fingerstick) 216 mg/dL (70-99) Allergies: Coded Allergies: codeine (Verified Adverse Reaction, Intermediate, Hallucinations, 02/08/17) Medications: Current Medications Medications (Trade) Dose Ordered Sig/Clau Route PRN Reason Start Time Stop Time Status Last Admin Dose Admin Sodium Chloride 1,000 ml @ 1,000 mls/hr 1X ONCE IV 07/16/18 21:15 07/16/18 22:14 DC 07/16/18 21:14 Iohexol (Omnipaque 300 Mg/ml) 75 ml 1X ONCE IV 07/16/18 22:00 07/16/18 22:01 DC 07/16/18 22:08 Morphine Sulfate (Morphine Sulfate) 4 mg 1X ONCE IV 07/16/18 23:00 07/16/18 23:01 DC 07/16/18 22:57 Morphine Sulfate (Morphine Sulfate) 4 mg PRN Q3HRS PRN IV PAIN 07/16/18 23:15 07/17/18 23:14 07/16/18 23:30 Sodium Chloride 1,000 ml @ 100 mls/hr Q10H IV 07/16/18 23:00 07/17/18 22:59 07/17/18 09:25 Potassium Chloride (Klor-Con) 40 meq 1X ONCE PO 07/16/18 23:15 07/16/18 23:16 DC 07/16/18 23:26 Potassium Chloride (Klor-Con) 40 meq 1X ONCE PO 07/17/18 02:00 07/17/18 02:01 DC 07/17/18 02:07 Potassium Chloride (Klor-Con) 20 meq [id number] PO 07/17/18 09:00 07/17/18 09:24 Atenolol (Tenormin) 100 mg DAILY PO 07/17/18 09:00 07/17/18 09:23 Amlodipine Besylate (Norvasc) 10 mg DAILY PO 07/17/18 09:00 07/17/18 09:24 Lisinopril (Prinivil) 40 mg DAILY PO 07/17/18 09:00 07/17/18 09:25 Imaging: Imaging: CT A/P IMPRESSION: Findings suggest mild pancreatitis centered at the body and tail of the pancreas. Abd US IMPRESSION: 1. Increased hepatic echogenicity most commonly due to fatty change. 2. No other significant abnormality is detected. PE: GEN: NAD HEENT: Atraumatic, PERRL LUNGS: CTAB HEART: RRR ABD: BS active but on the quiet side, soft, maybe some distention?, periumbilical discomfort to left side EXTREMITY: No edema SKIN: No rashes, no jaundice NEURO/PSYCH: A & O 3 A/P: A/P: Abd pain, bloating Minimally elevated lipase - resolved Abnormal CT - mild pancreatitis (body/tail) H/o GERD - worse when younger, no previous EGD Fatty liver CRC screen - average risk ?FH pancreatitis -- Mild pancreatitis on imaging, unclear etiology - normal GB, no significant alcohol use, normal triglycerides recently per H&P. Supportive care - is NPO w/ ongoing pain, consider trial of clears soon. Consider interval imaging (MRCP in a month or so). Also consider EGD later on w / GERD history. Will add acid-extractor tender raw stock now. Called by RN at 2:10 p.m. - pt asking to eat, try clears. DANITA WOODS Jul 17, 2018 11:21
[2018-07-17] MEDS ORDERED: DEXTROSE 50% 25 GM / 50ML DISP.SYRIN. IV PRN (11:45)
[2018-07-17] MEDS ORDERED: INSULIN GLARGINE 300 UNITS/3 ML INSULN.PEN. SQ SCH (21:00)
[2018-07-17] MEDS ORDERED: FAMOTIDINE 20 MG/2 ML VIAL IVP SCH (21:00)
[2018-07-17] MEDS ORDERED: ZOLPIDEM 5 MG TABLET. PO SCH (21:00)
[2018-07-17] MEDS ORDERED: ACETAMINOPHEN 325 MG TABLET. PO PRN (21:45)
[2018-07-18 03:00] VITALS: BP 135/69
[2018-07-18 05:25] LABS: CALCIUM 7.9 mg/dL (8.5-10.1); CREATININE 1.1 mg/dL (0.6-1.0); GFR 64.4; POTASSIUM 3.3 mmol/L (3.5-5.1)
[2018-07-18 07:00] VITALS: BP 143/79
[2018-07-18] MEDS: INSULIN LISPRO 300 UNITS/3 ML INSULN.PEN. SQ SCH ×2 (08:00→09:12)
[2018-07-18] MEDS: LISINOPRIL 20 MG TABLET PO SCH (09:08)
[2018-07-18] MEDS: POTASSIUM CHLORIDE 20 MEQ TABLET.ER. PO SCH (09:08)
[2018-07-18] MEDS: amLODIPine BESYLATE 10 MG TABLET PO SCH (09:08)
[2018-07-18] MEDS: ATENOLOL 50 MG TABLET. PO SCH (09:09)
--- NOTE | 2018-07-18 09:50 | DS ---
DATE OF DISCHARGE: 07/18/2018 CHIEF COMPLAINT: Abdominal pain. HISTORY OF PRESENT ILLNESS: The patient is a 47-year-old female with insulin-dependent diabetes who presented to the Emergency Room with the above complaint. She had been experiencing a several-week history of [id number], intermittent left-sided abdominal pain. Her bowels had continued to move normally and she was just living with the discomfort. However, her pain abruptly worsened on the evening prior to admission and so she presented to the Emergency Room. Evaluation there included a CT of the abdomen, which showed some changes of acute pancreatitis. Her lipase was 411. Treatment was started and she was admitted for further care. HOSPITAL COURSE: The patient was started on IV fluids for hydration. She was initially n.p.o. and all her oral medications were held. Her lipase was within the normal range when rechecked on the day after admission. An abdominal ultrasound was done, which was unremarkable. She was seen by GI Medicine and they recommended a trial of clear liquids as her pain was much improved. The patient has been tolerating clear liquids. She has had no recurrence of her abdominal pain and her lipase has remained within the normal range. The patient does not drink alcohol and does not have a history of elevated triglycerides, so the reason for her pancreatitis is not known at this time. She has been on a low dose of atorvastatin and it is possible that this has caused the problem. She is advised to not resume her atorvastatin and to follow up promptly if her abdominal pain reoccurs. The patient's other chronic medical problems including hypertension and insulin-dependent diabetes was stable with her usual medications and these are continued. She will be given a trial of a regular diet this morning and if she is tolerating this, she will be discharged home. FINAL DIAGNOSES: 1. Acute pancreatitis. 2. Diabetes mellitus type 2, insulin-dependent. 3. Hypertension. 4. Chronic hypokalemia. 5. Insomnia. 6. Hyperlipidemia. DISCHARGE MEDICATIONS: Amlodipine/benazepril 5/20 two daily, atenolol 100 mg daily, NovoLog insulin 30 units t.i.d. a.c., Lantus insulin 40 units at bedtime, potassium chloride 20 mEq t.i.d., zolpidem 5 mg at bedtime p.r.n. Atorvastatin has been discontinued. FOLLOWUP: With Dr. Healy as needed. DAVID HEALY MD DR: Woody JOB#: [id number] / [id number]
[2018-07-18] MEDS ORDERED: FAMOTIDINE 20 MG TABLET. PO SCH (10:00)
[2018-07-18 10:49] VITALS: BP 140/77
== END 2018-07-18 10:50 | disposition home or self-care (01) ==
LOC: ER 20:34 → 4 NORTH 23:24
PROVIDERS: ADMIT Family Medicine; ATTEND Family Medicine
DX: K85.90 Acute pancreatitis without necrosis or infection, unspecified (principal); E11.9 Type 2 diabetes mellitus without complications; I10 Essential (primary) hypertension; E78.5 Hyperlipidemia, unspecified; E87.6 Hypokalemia; G47.00 Insomnia, unspecified; K21.9 Gastro-esophageal reflux disease without esophagitis; F41.9 Anxiety disorder, unspecified; Z79.4 Long term (current) use of insulin; Z90.710 Acquired absence of both cervix and uterus; K76.0 Fatty (change of) liver, not elsewhere classified
CPT/HCPCS: 36415; 74177; 76700; 80048; 80053; 81001; 82962; 83690; 84484; 85025; 87086; 93005; 96372; 96374; 96375; 96376; 99284; G0378; J1815; J2270; J3490; J7030; Q9967; G0379

== ENCOUNTER → 2018-10-31 | Outpatient (CLI) | payer OTHER ==
[~2018-10-31] MED LIST changes: +ATEN100T PO; +ATOR10TA60 PO; +GABA-585 PO; +INSU100I13 SQ; +POTA20TA4 PO; +ZOLP5TAB5 PO
[2018-10-31 09:05] LABS: CALCIUM 8.7 mg/dL (8.5-10.1); GFR 71.6
[2018-10-31 09:22] LABS: POTASSIUM 2.5 mmol/L (3.5-5.1)
[2018-11-01 00:15] LABS: HEMOGLOBIN A1C 7.4 % (4.8-5.6)
== END | disposition home or self-care (01) ==
LOC: LAB 07:33
PROVIDERS: ATTEND Family Medicine
DX: E11.9 Type 2 diabetes mellitus without complications (principal); M79.2 Neuralgia and neuritis, unspecified
CPT/HCPCS: 36415; 80048; 82607; 83036; 84436; 84443

== ENCOUNTER → 2018-12-22 | Outpatient (CLI) | payer OTHER ==
--- NOTE | 2018-12-22 16:12 | RAD ---
Right RIBS, 3 views, 12/22/2018: HISTORY: Chest wall pain No right rib fracture is identified. There is no evidence of underlying pneumothorax, hemothorax or pulmonary infiltrate. The heart size is normal. IMPRESSION: No acute right rib abnormality is detected. Electronically signed by: Victor Manuel Chaudhry MD (12/22/2018 4:10 PM) [facility]
== END | disposition home or self-care (01) ==
LOC: RAD 11:35
PROVIDERS: ATTEND Family Medicine
DX: R07.89 Other chest pain (principal)
CPT/HCPCS: 71101

== ENCOUNTER → 2019-04-11 | Outpatient (CLI) | payer OTHER ==
[~2019-04-11] MED LIST changes: -AMLO1CAP10 PO; +AMLO1CAP11 PO
[2019-04-11 08:02] LABS: ALBUMIN 3.4 g/dL (3.4-5.0); ALBUMIN/GLOBULIN RATIO 0.6 (1.0-1.7); CALCIUM 8.6 mg/dL (8.5-10.1); CREATININE 1.2 mg/dL (0.6-1.0); TOTAL BILIRUBIN 0.5 mg/dL (0.2-1.0); TOTAL PROTEIN 8.7 g/dL (6.4-8.2)
[2019-04-11 08:11] LABS: CHOLESTEROL/HDL RATIO 4.2; POTASSIUM 2.7 mmol/L (3.5-5.1)
[2019-04-12 00:09] LABS: HEMOGLOBIN A1C 7.1 % (4.8-5.6)
== END | disposition home or self-care (01) ==
LOC: LAB 07:19
PROVIDERS: ATTEND Family Medicine
DX: E11.9 Type 2 diabetes mellitus without complications (principal)
CPT/HCPCS: 36415; 80053; 80061; 83036

== ENCOUNTER → 2019-08-13 | Outpatient (CLI) | payer OTHER ==
[~2019-08-13] MED LIST changes: -POTA20TA82 PO
[2019-08-13 08:08] LABS: BASO % 1 % (0-3); EOS # 0.2 x10^3/uL (0.0-0.7); EOS % 3 % (0-3); HEMATOCRIT 43.1 % (36.0-47.0); HEMOGLOBIN 14.6 g/dL (12.0-15.5); LYMPH # 3.7 x10^3/uL (1.0-4.8); LYMPH % 59 % (24-48); MEAN CORPUSCULAR HEMOGLOBIN 31 pg (25-35); MEAN CORPUSCULAR HGB CONC 34 g/dL (31-37); MEAN CORPUSCULAR VOLUME 91 fL (79-100); MONO # 0.5 x10^3/uL (0.0-1.1); MONO % 7 % (0-9); NEUT # 1.9 x10^3/uL (1.8-7.7); NEUT % 30 % (31-73); PLATELET COUNT 217 x10^3/uL (140-400); RED BLOOD COUNT 4.73 x10^6/uL (3.50-5.40); RED CELL DISTRIBUTION WIDTH 15.3 % (11.5-14.5); WHITE BLOOD COUNT 6.2 x10^3/uL (4.0-11.0)
[2019-08-13 08:24] LABS: ALBUMIN 3.6 g/dL (3.4-5.0); ALBUMIN/GLOBULIN RATIO 0.7 (1.0-1.7); CALCIUM 8.8 mg/dL (8.5-10.1); CREATININE 1.3 mg/dL (0.6-1.0); GFR 52.9; TOTAL BILIRUBIN 0.4 mg/dL (0.2-1.0); TOTAL PROTEIN 9.1 g/dL (6.4-8.2)
[2019-08-13 08:47] LABS: POTASSIUM 2.8 mmol/L (3.5-5.1)
[2019-08-13 23:07] LABS: HEMOGLOBIN A1C 8.7 % (4.8-5.6)
== END | disposition home or self-care (01) ==
LOC: LAB 07:24
PROVIDERS: ATTEND Family Medicine
DX: E11.9 Type 2 diabetes mellitus without complications (principal)
CPT/HCPCS: 36415; 80053; 83036; 85025

== ENCOUNTER → 2019-12-11 | Outpatient (CLI) | payer OTHER ==
[2019-12-11 07:48] LABS: CALCIUM 8.6 mg/dL (8.5-10.1); CREATININE 1.2 mg/dL (0.6-1.0); GFR 57.8; POTASSIUM 3.1 mmol/L (3.5-5.1)
[2019-12-12 00:07] LABS: HEMOGLOBIN A1C 8.3 % (4.8-5.6)
== END | disposition home or self-care (01) ==
LOC: LAB 07:09
PROVIDERS: ATTEND Family Medicine
DX: E11.9 Type 2 diabetes mellitus without complications (principal)
CPT/HCPCS: 36415; 80048; 83036

== ENCOUNTER → 2020-04-28 | Outpatient (CLI) | payer OTHER | END | disposition home or self-care (01) | LOC: LAB 08:30 | PROVIDERS: ATTEND Internal Medicine Pulmonary Disease | DX: R05 Cough (principal); R50.9 Fever, unspecified; R19.7 Diarrhea, unspecified; R11.2 Nausea with vomiting, unspecified; R53.81 Other malaise; R09.81 Nasal congestion; Z20.828 Contact with and (suspected) exposure to other viral communicable diseases | CPT/HCPCS: U0003-CS ==

== ENCOUNTER → 2020-05-26 | Outpatient (CLI) | payer OTHER ==
[2020-05-26 08:47] LABS: ALBUMIN 3.3 g/dL (3.4-5.0); ALBUMIN/GLOBULIN RATIO 0.6 (1.0-1.7); CALCIUM 8.7 mg/dL (8.5-10.1); CREATININE 1.2 mg/dL (0.6-1.0); GFR 57.8; TOTAL BILIRUBIN 0.3 mg/dL (0.2-1.0); TOTAL PROTEIN 9.3 g/dL (6.4-8.2)
[2020-05-26 08:49] LABS: HEMATOCRIT 40.1 % (36.0-47.0); HEMOGLOBIN 13.3 g/dL (12.0-15.5); RED BLOOD COUNT 4.51 x10^6/uL (3.50-5.40); RED CELL DISTRIBUTION WIDTH 15.8 % (11.5-14.5); WHITE BLOOD COUNT 8.3 x10^3/uL (4.0-11.0)
[2020-05-27 03:08] LABS: HEMOGLOBIN A1C 8.2 % (4.8-5.6)
== END ==
LOC: LAB 07:35
PROVIDERS: ATTEND Family Medicine
DX: E11.9 Type 2 diabetes mellitus without complications (principal)
CPT/HCPCS: 36415; 80053; 83036; 85027

== ENCOUNTER → 2020-05-28 | Outpatient (CLI) | payer OTHER ==
[2020-05-30 18:09] LABS: ALBUM 3.7 g/dL (2.9-4.4); ALPHA 1 0.3 g/dL (0.0-0.4); ALPHA 2 0.9 g/dL (0.4-1.0); BETA 1.1 g/dL (0.7-1.3); GAMMA 2.5 g/dL (0.4-1.8); PROTEIN TOTAL 8.4 g/dL (6.0-8.5); SPEP AG RATIO 0.8 (0.7-1.7)
== END ==
LOC: LAB 09:40
PROVIDERS: ATTEND Family Medicine
DX: R77.9 Abnormality of plasma protein, unspecified (principal)
CPT/HCPCS: 36415; 84165

== ENCOUNTER → 2020-06-18 | Outpatient (CLI) | payer OTHER ==
[2020-06-18 12:29] LABS: CREATININE 1.2 mg/dL (0.6-1.0); GFR 57.8; POTASSIUM 3.1 mmol/L (3.5-5.1)
[2020-06-18 12:31] LABS: BASO % 1 % (0-3); EOS # 0.2 x10^3/uL (0.0-0.7); EOS % 3 % (0-3); HEMATOCRIT 41.7 % (36.0-47.0); HEMOGLOBIN 13.8 g/dL (12.0-15.5); LYMPH # 3.4 x10^3/uL (1.0-4.8); LYMPH % 47 % (24-48); MEAN CORPUSCULAR HEMOGLOBIN 29 pg (25-35); MEAN CORPUSCULAR HGB CONC 33 g/dL (31-37); MEAN CORPUSCULAR VOLUME 89 fL (79-100); MONO # 0.8 x10^3/uL (0.0-1.1); MONO % 11 % (0-9); NEUT # 2.9 x10^3/uL (1.8-7.7); NEUT % 39 % (31-73); PLATELET COUNT 282 x10^3/uL (140-400); RED BLOOD COUNT 4.69 x10^6/uL (3.50-5.40); RED CELL DISTRIBUTION WIDTH 16.6 % (11.5-14.5); WHITE BLOOD COUNT 7.3 x10^3/uL (4.0-11.0)
[2020-06-18 12:35] LABS: ALBUMIN 3.4 g/dL (3.4-5.0); ALBUMIN/GLOBULIN RATIO 0.6 (1.0-1.7); TOTAL BILIRUBIN 0.2 mg/dL (0.2-1.0); TOTAL PROTEIN 9.3 g/dL (6.4-8.2)
[2020-06-19 15:20] LABS: KAPPA FREE 34.9 mg/L (3.3-19.4); KAPPA LAMBDA RATIO 4.47 (0.26-1.65); LAMBDA FREE 7.8 mg/L (5.7-26.3)
[2020-06-20 14:15] LABS: ALBUM 3.8 g/dL (2.9-4.4); ALPHA 1 0.3 g/dL (0.0-0.4); GAMMA 2.6 g/dL (0.4-1.8); PROTEIN TOTAL 8.8 g/dL (6.0-8.5); SPEP AG RATIO 0.8 (0.7-1.7)
== END ==
LOC: ONCLAB 11:47
PROVIDERS: ATTEND Internal Medicine Hematology & Oncology
DX: D47.2 Monoclonal gammopathy (principal)
CPT/HCPCS: 36415; 80053; 83520; 84165; 85025

== ENCOUNTER 2020-07-15 08:09 | Outpatient (CLI) | payer OTHER ==
[2020-07-15] VITALS (8 sets, daily range): BP systolic 107–178; BP diastolic 65–89
[~2020-07-15] VITALS: Ht 152.4 cm; Wt 99.3 kg
[2020-07-15] MEDS ORDERED: MIDAZOLAM HCL/PF 2 MG/2 ML VIAL. ONE (08:37)
[2020-07-15] MEDS ORDERED: fentaNYL PF VIAL 100 MCG/2 ML VIAL ONE (08:37)
[2020-07-15 08:43] LABS: BASO % 0 % (0-3); EOS # 0.2 x10^3/uL (0.0-0.7); EOS % 3 % (0-3); HEMATOCRIT 40.4 % (36.0-47.0); HEMOGLOBIN 13.6 g/dL (12.0-15.5); LYMPH # 3.3 x10^3/uL (1.0-4.8); LYMPH % 52 % (24-48); MEAN CORPUSCULAR HEMOGLOBIN 30 pg (25-35); MEAN CORPUSCULAR HGB CONC 34 g/dL (31-37); MEAN CORPUSCULAR VOLUME 88 fL (79-100); MONO # 0.7 x10^3/uL (0.0-1.1); MONO % 10 % (0-9); NEUT # 2.2 x10^3/uL (1.8-7.7); NEUT % 34 % (31-73); PLATELET COUNT 253 x10^3/uL (140-400); RED BLOOD COUNT 4.57 x10^6/uL (3.50-5.40); RED CELL DISTRIBUTION WIDTH 16.5 % (11.5-14.5); WHITE BLOOD COUNT 6.4 x10^3/uL (4.0-11.0)
[2020-07-15 08:55] LABS: PROTHROMBIN TIME PATIENT 12.7 SEC (11.7-14.0)
[2020-07-15] MEDS ORDERED: INSU100I13 SQ (09:19)
[2020-07-15] MEDS ORDERED: INSU100V6 SQ (09:19)
[2020-07-15] MEDS ORDERED: LIDOCAINE WITH 8.4% SOD BICARB 3 ML DISP.SYRIN. ONE (09:24)
[2020-07-15] MEDS ORDERED: LIDOCAINE WITH 8.4% SOD BICARB 3 ML DISP.SYRIN. IJ ONE (09:45)
[2020-07-15] MEDS ORDERED: MIDAZOLAM HCL/PF 2 MG/2 ML VIAL. IV ONE (09:45)
[2020-07-15] MEDS ORDERED: fentaNYL PF VIAL 100 MCG/2 ML VIAL IV ONE (09:45)
--- NOTE | 2020-07-15 11:30 | NUR ---
pt A& O x3. denies pain, dizziness or nausea. tolerating po well. ambulated to BR w/o problem. VSS. dressing on left sacral area has small pea size area of drainage. D/c instructions reviewed and questions answered. out to vehicle per w/c- friend to drive her home.
--- NOTE | 2020-07-15 14:15 | RAD ---
CT-guided bone marrow biopsy. 07/15/2020 12:11 PM Indication: MGUS D47.2 Discussion: The risks and benefits of the procedure, including but not limited to, bleeding and infection were discussed patient. Informed consent was obtained. The patient was brought to the CT scanner and placed in the prone position. A timeout procedure was performed. Cardiology Consultant CT imaging of the pelvis demonstrated left ilium amenable to bone marrow biopsy. The overlying soft tissues were prepped and draped using maximum sterile barrier technique. 1% lidocaine without epinephrine was administered for local anesthesia. Under intermittent CT guidance, an OncControl needle was advanced into the bone marrow of the left iliac crest. 2 Aspirates and 1 core biopsy samples were obtained. Samples were delivered to pathology was present at the time of procedure. The needle was removed and manual pressure held to achieve hemostasis. No immediate complications were identified. The procedure was performed under conscious sedation including continuous cardiopulmonary monitoring via dedicated sedation nurse. Sedation time: 15 minutes Impression: Successful CT-guided bone marrow biopsy of the left iliac crest . PQRS Compliance Statement: One or more of the following individualized dose reduction techniques were utilized for this examination: 1. Automated exposure control 2. Adjustment of the mA and/or kV according to patient size 3. Use of iterative reconstruction technique
== END 2020-07-15 11:30 | disposition home or self-care (01) ==
LOC: INTRAD 08:09
PROVIDERS: ATTEND Internal Medicine Hematology & Oncology
DX: D47.2 Monoclonal gammopathy (principal); I10 Essential (primary) hypertension; E78.00 Pure hypercholesterolemia, unspecified; E11.9 Type 2 diabetes mellitus without complications; F41.9 Anxiety disorder, unspecified; M19.90 Unspecified osteoarthritis, unspecified site; Z79.4 Long term (current) use of insulin; Z79.899 Other long term (current) drug therapy; Z98.890 Other specified postprocedural states; Z88.5 Allergy status to narcotic agent; Z72.89 Other problems related to lifestyle; Z82.49 Family history of ischemic heart disease and other diseases of the circulatory system; Z83.3 Family history of diabetes mellitus
CPT/HCPCS: 36415; 38222; 77012; 85025; 85610; 85730; 99152; J2250; J3010; J3490

== ENCOUNTER → 2020-07-25 | Outpatient (CLI) | payer OTHER ==
[2020-07-15 11:10] VITALS: BP 130/76
[~2020-07-25] MED LIST changes: +INSU100V6 SQ
--- NOTE | 2020-07-28 18:39 | RAD ---
EXAM: PET CT, whole body EXAM DATE: 07/25/2020 INDICATION: Reason: MGUS D47.2 / Spl. Instructions: / History: Myeloma RADIOPHARMACEUTICAL: 15.3 mCi of F-18 Fluorodeoxyglucose (FDG) I.V. via the right antecubital fossa. TECHNIQUE: Patient weight: 219 pounds. Following at least four-hour fasting, the patient's blood gluc ose was 142 mg/dl. Approximately 1 hour after administration of FDG, overlapping emission scanning w as performed from the top of the head through the feet. A low-dose CT was performed for attenuation correction purposes and anatomic localization. Fused images of PET and CT were reviewed. Any standar dized uptake values (SUV) reported are maximum values within a volume region of interest, expressed i n gm/ml. COMPARISON: CT abdomen and pelvis of 07/16/[address] guided bone biopsy of 07/15/2020. FINDINGS: PET: In the head and neck, slightly asymmetric uptake in the left glottis is seen to a max SUV of 3.8. No associated mass. No other abnormal uptake in the head and neck is appreciated. In the chest, no abnormal FDG uptake in the soft tissues is identified. Background max SUV FDG uptake in the mediastinum is 3.9. There is uptake of the right glenohumeral joint noted in the setting of d egenerative change that shows a max SUV of 3.06. In the abdomen and pelvis, background FDG uptake in the liver is a max SUV of 5.19. Overall high back ground activity is noted with FDG uptake in injection granulomas in the ventral abdominal subcutaneou s fat measuring 1.34. Focal FDG uptake in the low rectal mucosa to max SUV of 3.79 is noted. Osseous structures show mild generalized demineralization with lucency at T6 (axial image 171 of seri es 3) anteriorly that is nonspecific but shows FDG uptake to max SUV of 3.52. A more subtle lucency a t L3 (axial image 275 of series 3) shows FDG uptake to max SUV of 3.89. The PET CT images of the lower extremities shows focal uptake in the distal bilateral femoral metaphy ses to max SUV of 2.8 on the right and 2.6 on the left. They also show FDG uptake in the bilateral pr oximal tibia to max SUV of 2.47 on the right and 2.58 on the left. There is also extensive FDG uptake in the calf muscles bilaterally as well as along the plantar aspect of the right foot. Calf muscle a ctivity on the right shows a max SUV of 2.59 on the left of 3.08. Activity along the intrinsic muscle s of the right foot show max SUV of 4.33. CT: Head and neck shows no acute intracranial pathology and, per from a possible 1.3 cm nodule in the lef t thyroid lobe (image 137 of series 3), no adenopathy or mass. Chest shows no acute findings on noncontrast CT. There is subtle prominent partly calcified mediastin al and right hilar lymph nodes, largest in the lower paratracheal freida station measuring 1.2 cm. No suspicious lung nodules or masses and no consolidation. No mediastinal mass or adenopathy is otherwis e noted. No pneumothorax or pleural effusion. Chest wall is unremarkable. Abdomen and pelvis shows surgical changes from previous hysterectomy with nonvisualized right ovary. Left ovary is unremarkable. No mass, adenopathy or fluid collection. Apart from the nonspecific lucencies at T6 and L3, no acute or aggressive appearing bony lesions are identified. IMPRESSION: 1. Osseous involvement by myeloma is relatively subtle currently with 2 nonspecific lucencies at T6 a nd L3 showing FDG uptake to max SUVs respectively of 3.52 and 3.89. Uptake in the distal femurs and p roximal tibias is also noted and these merit attention on follow-up. No findings for soft tissue plas macytoma. 2. Activity in the low rectal mucosa is nonspecific and may be correlated with symptoms and physical exam on an elective basis. Otherwise, no findings suggestive of an FDG avid process. Electronically signed by: Bebe Castillo MD (07/28/2020 6:37 PM) [id number]
== END ==
LOC: PETSC 09:03
PROVIDERS: ATTEND Internal Medicine Hematology & Oncology
DX: C90.00 Multiple myeloma not having achieved remission (principal); D47.2 Monoclonal gammopathy; Z90.710 Acquired absence of both cervix and uterus
CPT/HCPCS: 78815; A9552

== ENCOUNTER → 2020-08-07 | Outpatient (CLI) | payer OTHER ==
[2020-07-15 11:10] VITALS: BP 130/76
[2020-08-07 11:53] LABS: CREATININE 1.5 mg/dL (0.6-1.0); GFR 44.7
[2020-08-07] MEDS: GADOTERATE 5 MMOL/10ML VIAL. IVP ONE ×2 (12:57)
--- NOTE | 2020-08-07 17:44 | RAD ---
EXAM: MRI Thoracic Spine with and without IV contrast INDICATION: Reason: MGUS, MULTIPLE MYELOMA /19mL CLARISCAN / Spl. Instructions: / History: . TECHNIQUE: Sagittal T1-w, T2-w, and STIR images, and axial T2-w and T1-w images of the thoracic spine without contrast followed by post-contrast axial and sagittal T1 fat sat images. IV CONTRAST: Administered COMPARISON: PET CT scan of 07/25/2020 FINDINGS: ALIGNMENT: Alignment is within normal limits. OSSEOUS: No evidence of fracture or bone destruction. Marrow signal is diffusely heterogeneous and sh ows no significant enhancement. The lucent lesions at T6 and L3 noted on recent PET/CT show subtle ST IR hyperintensity on MRI (image 6 of 13 on series 7). There is no associated cortical buckling or end plate erosion. SPINAL CORD: The spinal cord is intrinsically normal. No abnormal enhancement. SOFT TISSUES: Included mediastinum shows precarinal adenopathy measuring up to 2 cm in diameter. This correlates with dense nodules evident on prior PET CT, slightly obscured by respiratory motion artif act on that study. DISC LEVELS: T1-T2: Disc desiccation. No stenosis. T2-T3: Disc desiccation. No stenosis. T3-T4: Disc desiccation. No stenosis.. T4-T5: Disc desiccation. No stenosis. T5-T6: Central left paracentral disc protrusion mildly effaces the ventral thecal sac and results in mild left foraminal narrowing. T6-T7: Small central protrusion mildly effaces the ventral CSF spaces but results in no significant c entral canal stenosis. T7-T8: Small central protrusion eccentric to the left mildly effaces the ventral CSF spaces but resul ts in no cord deformity or significant central canal stenosis. T8-T9: Disc osteophyte complex eccentric to the right minimally flattens the ventral thecal sac but r esults in no significant central canal or foraminal stenosis. T9-T10: Disc desiccation. No stenosis. T10-T11: Disc desiccation. No stenosis. T11-T12: Disc desiccation. No stenosis. IMPRESSION: Multilevel lumbar spinal degenerative spondylosis and heterogeneity to the marrow signal without over t findings of abnormal enhancement. Differential considerations include heterogeneous red marrow repl acement versus low tumor burden in the marrow in the imaged spine. The STIR bright lesions at T6 and L3 correlating with lucency in the thoracic and lumbar spine on PET CT imaging could reflect atypical hemangiomas and merit reassessment on follow-up. Electronically signed by: Bebe Castillo MD (08/07/2020 5:41 PM) [facility] [place]
== END ==
LOC: MRI 10:47
PROVIDERS: ATTEND Internal Medicine Hematology & Oncology
DX: C90.00 Multiple myeloma not having achieved remission (principal); M48.04 Spinal stenosis, thoracic region
CPT/HCPCS: 36415; 72157; 82565; 84520; A9575

== ENCOUNTER → 2020-08-18 | Outpatient (CLI) | payer OTHER ==
[2020-07-15 11:10] VITALS: BP 130/76
[2020-08-18 14:38] LABS: BASO % 1 % (0-3); EOS # 0.2 x10^3/uL (0.0-0.7); EOS % 3 % (0-3); HEMATOCRIT 37.8 % (36.0-47.0); HEMOGLOBIN 12.8 g/dL (12.0-15.5); LYMPH # 3.9 x10^3/uL (1.0-4.8); LYMPH % 55 % (24-48); MEAN CORPUSCULAR HEMOGLOBIN 30 pg (25-35); MEAN CORPUSCULAR HGB CONC 34 g/dL (31-37); MEAN CORPUSCULAR VOLUME 89 fL (79-100); MONO # 0.6 x10^3/uL (0.0-1.1); MONO % 9 % (0-9); NEUT # 2.3 x10^3/uL (1.8-7.7); NEUT % 33 % (31-73); PLATELET COUNT 245 x10^3/uL (140-400); RED BLOOD COUNT 4.25 x10^6/uL (3.50-5.40); RED CELL DISTRIBUTION WIDTH 16.5 % (11.5-14.5); WHITE BLOOD COUNT 7.1 x10^3/uL (4.0-11.0)
[2020-08-18 14:47] LABS: CALCIUM 9.1 mg/dL (8.5-10.1); CREATININE 1.2 mg/dL (0.6-1.0); GFR 57.8; POTASSIUM 3.1 mmol/L (3.5-5.1)
[2020-08-18 14:53] LABS: ALBUMIN 3.3 g/dL (3.4-5.0); ALBUMIN/GLOBULIN RATIO 0.6 (1.0-1.7); TOTAL BILIRUBIN 0.3 mg/dL (0.2-1.0); TOTAL PROTEIN 8.6 g/dL (6.4-8.2)
[2020-08-19 14:13] LABS: KAPPA FREE 28.9 mg/L (3.3-19.4); LAMBDA FREE 7.6 mg/L (5.7-26.3)
[2020-08-19 19:09] LABS: ALBUM 3.9 g/dL (2.9-4.4); ALPHA 1 0.2 g/dL (0.0-0.4); ALPHA 2 0.7 g/dL (0.4-1.0); BETA 0.9 g/dL (0.7-1.3); GAMMA 2.4 g/dL (0.4-1.8); PROTEIN TOTAL 8.2 g/dL (6.0-8.5); SPEP AG RATIO 0.9 (0.7-1.7)
[2020-08-20 14:12] LABS: COMMENT IMMUNOFIX SERUM Note: (.); IMMUNOGLOBULIN A 63 mg/dL (87-352); IMMUNOGLOBULIN G 2732 mg/dL (586-1602); IMMUNOGLOBULIN M 44 mg/dL (26-217)
== END ==
LOC: ONCLAB 14:17
PROVIDERS: ATTEND Internal Medicine Hematology & Oncology
DX: C90.00 Multiple myeloma not having achieved remission (principal)
CPT/HCPCS: 36415; 80053; 82784; 83520; 83615; 84165; 85025; 86334

== ENCOUNTER → 2020-10-07 | Outpatient (CLI) | payer OTHER ==
[2020-07-15 11:10] VITALS: BP 130/76
[2020-10-07 15:25] LABS: BASO % 1 % (0-3); EOS # 0.2 x10^3/uL (0.0-0.7); EOS % 3 % (0-3); HEMATOCRIT 39.6 % (36.0-47.0); HEMOGLOBIN 13.2 g/dL (12.0-15.5); LYMPH # 4.4 x10^3/uL (1.0-4.8); LYMPH % 61 % (24-48); MEAN CORPUSCULAR HEMOGLOBIN 30 pg (25-35); MEAN CORPUSCULAR HGB CONC 33 g/dL (31-37); MEAN CORPUSCULAR VOLUME 89 fL (79-100); MONO # 0.5 x10^3/uL (0.0-1.1); MONO % 7 % (0-9); NEUT # 2.1 x10^3/uL (1.8-7.7); NEUT % 29 % (31-73); PLATELET COUNT 251 x10^3/uL (140-400); RED BLOOD COUNT 4.45 x10^6/uL (3.50-5.40); RED CELL DISTRIBUTION WIDTH 15.8 % (11.5-14.5); WHITE BLOOD COUNT 7.2 x10^3/uL (4.0-11.0)
[2020-10-07 15:37] LABS: ALBUMIN 3.2 g/dL (3.4-5.0); ALBUMIN/GLOBULIN RATIO 0.6 (1.0-1.7); CALCIUM 9.1 mg/dL (8.5-10.1); CREATININE 1.2 mg/dL (0.6-1.0); GFR 57.5; TOTAL BILIRUBIN 0.3 mg/dL (0.2-1.0); TOTAL PROTEIN 8.9 g/dL (6.4-8.2)
[2020-10-07 15:49] LABS: POTASSIUM 2.4 mmol/L (3.5-5.1)
[2020-10-07 16:12] LABS: % ATYL 2 % (0-0); % BANDS 1 % (0-9); % MONOS 5 % (0-10); % SEGS 34 % (35-66); PLT ESTIMATE ADEQUATE (ADEQUATE)
[2020-10-07 16:13] LABS: % EOS 4 % (0-5); % LYMPHS 54 % (24-48)
[2020-10-09 07:15] LABS: KAPPA FREE 34.6 mg/L (3.3-19.4); KAPPA LAMBDA RATIO 3.89 (0.26-1.65); LAMBDA FREE 8.9 mg/L (5.7-26.3)
[2020-10-09 14:12] LABS: COMMENT IMMUNOFIX SERUM Note: (.); IMMUNOGLOBULIN A 67 mg/dL (87-352); IMMUNOGLOBULIN G 3276 mg/dL (586-1602); IMMUNOGLOBULIN M 49 mg/dL (26-217)
[2020-10-09 15:18] LABS: ALBUM 3.7 g/dL (2.9-4.4); ALPHA 1 0.3 g/dL (0.0-0.4); ALPHA 2 0.9 g/dL (0.4-1.0); BETA 1.2 g/dL (0.7-1.3); GAMMA 2.6 g/dL (0.4-1.8); PROTEIN TOTAL 8.6 g/dL (6.0-8.5); SPEP AG RATIO 0.8 (0.7-1.7)
== END ==
LOC: ONCLAB 14:29
PROVIDERS: ATTEND Internal Medicine Hematology & Oncology
DX: C90.00 Multiple myeloma not having achieved remission (principal)
CPT/HCPCS: 36415; 80053; 82784; 83520; 84165; 85007; 85025; 86334

== ENCOUNTER → 2020-10-20 | Outpatient (CLI) | payer OTHER ==
[2020-07-15 11:10] VITALS: BP 130/76
[2020-10-20 12:02] LABS: BASO # 0.1 x10^3/uL (0.0-0.2); BASO % 1 % (0-3); EOS # 0.2 x10^3/uL (0.0-0.7); EOS % 3 % (0-3); HEMATOCRIT 37.1 % (36.0-47.0); HEMOGLOBIN 12.6 g/dL (12.0-15.5); LYMPH # 2.5 x10^3/uL (1.0-4.8); LYMPH % 43 % (24-48); MEAN CORPUSCULAR HEMOGLOBIN 30 pg (25-35); MEAN CORPUSCULAR HGB CONC 34 g/dL (31-37); MEAN CORPUSCULAR VOLUME 89 fL (79-100); MONO # 0.4 x10^3/uL (0.0-1.1); MONO % 7 % (0-9); NEUT # 2.7 x10^3/uL (1.8-7.7); NEUT % 46 % (31-73); PLATELET COUNT 238 x10^3/uL (140-400); RED BLOOD COUNT 4.15 x10^6/uL (3.50-5.40); WHITE BLOOD COUNT 5.7 x10^3/uL (4.0-11.0)
[2020-10-20 12:10] LABS: CREATININE 1.3 mg/dL (0.6-1.0); GFR 52.5; POTASSIUM 3.4 mmol/L (3.5-5.1)
[2020-10-20 12:16] LABS: ALBUMIN 3.1 g/dL (3.4-5.0); ALBUMIN/GLOBULIN RATIO 0.6 (1.0-1.7); TOTAL BILIRUBIN 0.3 mg/dL (0.2-1.0); TOTAL PROTEIN 8.3 g/dL (6.4-8.2)
[2020-10-20 13:54] LABS: % BANDS 1 % (0-9); % BASOS 2 % (0-3); % LYMPHS 39 % (24-48); % MONOS 3 % (0-10); % SEGS 55 % (35-66); NUCLEATED RBC 2
[2020-10-20 13:55] LABS: PLT ESTIMATE ADEQUATE (ADEQUATE)
[2020-10-21 17:10] LABS: KAPPA FREE 54.4 mg/L (3.3-19.4); KAPPA LAMBDA RATIO 4.32 (0.26-1.65); LAMBDA FREE 12.6 mg/L (5.7-26.3)
[2020-10-22 14:30] LABS: ALBUM 3.7 g/dL (2.9-4.4); ALPHA 1 0.2 g/dL (0.0-0.4); ALPHA 2 0.7 g/dL (0.4-1.0); GAMMA 2.5 g/dL (0.4-1.8); SPEP AG RATIO 0.9 (0.7-1.7)
== END ==
LOC: ONCLAB 11:48
PROVIDERS: ATTEND Internal Medicine Hematology & Oncology
DX: C90.00 Multiple myeloma not having achieved remission (principal)
CPT/HCPCS: 36415; 80053; 83520; 84165; 85007; 85025

== ENCOUNTER → 2020-11-05 | Outpatient (CLI) | payer OTHER ==
[2020-07-15 11:10] VITALS: BP 130/76
[2020-11-05 14:33] LABS: BASO # 0.1 x10^3/uL (0.0-0.2); BASO % 2 % (0-3); EOS # 0.2 x10^3/uL (0.0-0.7); EOS % 3 % (0-3); HEMATOCRIT 38.8 % (36.0-47.0); HEMOGLOBIN 12.7 g/dL (12.0-15.5); LYMPH # 3.5 x10^3/uL (1.0-4.8); LYMPH % 51 % (24-48); MEAN CORPUSCULAR HEMOGLOBIN 29 pg (25-35); MEAN CORPUSCULAR HGB CONC 33 g/dL (31-37); MEAN CORPUSCULAR VOLUME 89 fL (79-100); MONO # 0.8 x10^3/uL (0.0-1.1); MONO % 12 % (0-9); NEUT # 2.3 x10^3/uL (1.8-7.7); NEUT % 33 % (31-73); PLATELET COUNT 287 x10^3/uL (140-400); RED BLOOD COUNT 4.38 x10^6/uL (3.50-5.40); RED CELL DISTRIBUTION WIDTH 16.4 % (11.5-14.5)
[2020-11-05 15:00] LABS: ALBUMIN 3.1 g/dL (3.4-5.0); ALBUMIN/GLOBULIN RATIO 0.6 (1.0-1.7); CALCIUM 8.4 mg/dL (8.5-10.1); CREATININE 1.1 mg/dL (0.6-1.0); GFR 63.6; TOTAL BILIRUBIN 0.3 mg/dL (0.2-1.0); TOTAL PROTEIN 8.6 g/dL (6.4-8.2)
[2020-11-05 15:35] LABS: POTASSIUM 2.6 mmol/L (3.5-5.1)
[2020-11-06 01:08] LABS: HEMOGLOBIN A1C 7.8 % (4.8-5.6)
== END ==
LOC: LAB 14:12
PROVIDERS: ATTEND Family Medicine
DX: E11.8 Type 2 diabetes mellitus with unspecified complications (principal)
CPT/HCPCS: 36415; 80053; 83036; 85025

== ENCOUNTER → 2020-11-07 | Outpatient (CLI) | payer OTHER ==
[2020-07-15 11:10] VITALS: BP 130/76
[2020-11-07 08:55] LABS: BASO # 0.1 x10^3/uL (0.0-0.2); BASO % 2 % (0-3); EOS # 0.1 x10^3/uL (0.0-0.7); EOS % 3 % (0-3); HEMATOCRIT 40.4 % (36.0-47.0); LYMPH # 2.9 x10^3/uL (1.0-4.8); LYMPH % 55 % (24-48); MEAN CORPUSCULAR HEMOGLOBIN 29 pg (25-35); MEAN CORPUSCULAR HGB CONC 32 g/dL (31-37); MEAN CORPUSCULAR VOLUME 89 fL (79-100); MONO # 0.6 x10^3/uL (0.0-1.1); MONO % 12 % (0-9); NEUT # 1.5 x10^3/uL (1.8-7.7); NEUT % 29 % (31-73); PLATELET COUNT 323 x10^3/uL (140-400); RED BLOOD COUNT 4.54 x10^6/uL (3.50-5.40); RED CELL DISTRIBUTION WIDTH 16.9 % (11.5-14.5); WHITE BLOOD COUNT 5.2 x10^3/uL (4.0-11.0)
[2020-11-07 09:07] LABS: CALCIUM 8.4 mg/dL (8.5-10.1); CREATININE 1.1 mg/dL (0.6-1.0); GFR 63.6; POTASSIUM 3.1 mmol/L (3.5-5.1)
[2020-11-07 09:13] LABS: ALBUMIN 3.1 g/dL (3.4-5.0); ALBUMIN/GLOBULIN RATIO 0.6 (1.0-1.7); TOTAL BILIRUBIN 0.3 mg/dL (0.2-1.0); TOTAL PROTEIN 8.6 g/dL (6.4-8.2)
== END ==
LOC: ONCLAB 08:27
PROVIDERS: ATTEND Internal Medicine Hematology & Oncology
DX: C90.00 Multiple myeloma not having achieved remission (principal)
CPT/HCPCS: 80053; 82784; 83520; 84165; 85025; 86334

== ENCOUNTER → 2020-12-05 | Outpatient (CLI) | payer OTHER ==
[2020-07-15 11:10] VITALS: BP 130/76
[2020-12-05 08:31] LABS: BASO # 0.1 x10^3/uL (0.0-0.2); BASO % 2 % (0-3); EOS # 0.2 x10^3/uL (0.0-0.7); EOS % 4 % (0-3); HEMATOCRIT 39.5 % (36.0-47.0); HEMOGLOBIN 13.2 g/dL (12.0-15.5); LYMPH % 59 % (24-48); MEAN CORPUSCULAR HEMOGLOBIN 29 pg (25-35); MEAN CORPUSCULAR HGB CONC 33 g/dL (31-37); MEAN CORPUSCULAR VOLUME 87 fL (79-100); MONO # 0.6 x10^3/uL (0.0-1.1); MONO % 11 % (0-9); NEUT # 1.3 x10^3/uL (1.8-7.7); NEUT % 24 % (31-73); PLATELET COUNT 240 x10^3/uL (140-400); RED BLOOD COUNT 4.57 x10^6/uL (3.50-5.40); RED CELL DISTRIBUTION WIDTH 16.4 % (11.5-14.5); WHITE BLOOD COUNT 5.2 x10^3/uL (4.0-11.0)
[2020-12-05 08:48] LABS: ALBUMIN 3.3 g/dL (3.4-5.0); ALBUMIN/GLOBULIN RATIO 0.6 (1.0-1.7); CALCIUM 8.4 mg/dL (8.5-10.1); CREATININE 1.1 mg/dL (0.6-1.0); GFR 63.6; TOTAL BILIRUBIN 0.4 mg/dL (0.2-1.0); TOTAL PROTEIN 8.4 g/dL (6.4-8.2)
[2020-12-05 08:59] LABS: POTASSIUM 2.4 mmol/L (3.5-5.1)
[2020-12-06 16:10] LABS: KAPPA FREE 60.4 mg/L (3.3-19.4); KAPPA LAMBDA RATIO 4.54 (0.26-1.65); LAMBDA FREE 13.3 mg/L (5.7-26.3)
== END ==
LOC: ONCLAB 08:01
PROVIDERS: ATTEND Physician Assistant
DX: C90.00 Multiple myeloma not having achieved remission (principal)
CPT/HCPCS: 80053; 82088; 83520; 84165; 84244; 85025

== ENCOUNTER → 2020-12-11 | Outpatient (CLI) | payer OTHER ==
[2020-07-15 11:10] VITALS: BP 130/76
[2020-12-11 08:30] LABS: BASO # 0.1 x10^3/uL (0.0-0.2); BASO % 2 % (0-3); EOS # 0.3 x10^3/uL (0.0-0.7); EOS % 7 % (0-3); HEMATOCRIT 38.5 % (36.0-47.0); HEMOGLOBIN 12.8 g/dL (12.0-15.5); LYMPH # 2.1 x10^3/uL (1.0-4.8); LYMPH % 52 % (24-48); MEAN CORPUSCULAR HEMOGLOBIN 29 pg (25-35); MEAN CORPUSCULAR HGB CONC 33 g/dL (31-37); MEAN CORPUSCULAR VOLUME 87 fL (79-100); MONO # 0.3 x10^3/uL (0.0-1.1); MONO % 8 % (0-9); NEUT # 1.2 x10^3/uL (1.8-7.7); NEUT % 30 % (31-73); PLATELET COUNT 255 x10^3/uL (140-400); RED CELL DISTRIBUTION WIDTH 16.8 % (11.5-14.5); WHITE BLOOD COUNT 3.9 x10^3/uL (4.0-11.0)
[2020-12-11 08:35] LABS: CALCIUM 8.4 mg/dL (8.5-10.1)
[2020-12-11 08:45] LABS: POTASSIUM 2.8 mmol/L (3.5-5.1)
== END ==
LOC: ONCLAB 08:15
PROVIDERS: ATTEND Physician Assistant
DX: C90.00 Multiple myeloma not having achieved remission (principal)
CPT/HCPCS: 36415; 80048; 83735; 85025

== ENCOUNTER → 2020-12-18 | Outpatient (CLI) | payer OTHER ==
[2020-07-15 11:10] VITALS: BP 130/76
[2020-12-18 08:42] LABS: BASO # 0.1 x10^3/uL (0.0-0.2); BASO % 1 % (0-3); EOS # 0.2 x10^3/uL (0.0-0.7); EOS % 4 % (0-3); HEMATOCRIT 41.6 % (36.0-47.0); HEMOGLOBIN 13.7 g/dL (12.0-15.5); LYMPH # 2.1 x10^3/uL (1.0-4.8); LYMPH % 48 % (24-48); MEAN CORPUSCULAR HEMOGLOBIN 29 pg (25-35); MEAN CORPUSCULAR HGB CONC 33 g/dL (31-37); MEAN CORPUSCULAR VOLUME 87 fL (79-100); MONO # 0.5 x10^3/uL (0.0-1.1); MONO % 11 % (0-9); NEUT # 1.6 x10^3/uL (1.8-7.7); NEUT % 36 % (31-73); PLATELET COUNT 284 x10^3/uL (140-400); RED CELL DISTRIBUTION WIDTH 16.4 % (11.5-14.5); WHITE BLOOD COUNT 4.5 x10^3/uL (4.0-11.0)
[2020-12-18 08:58] LABS: ALBUMIN 3.3 g/dL (3.4-5.0); ALBUMIN/GLOBULIN RATIO 0.6 (1.0-1.7); CALCIUM 8.6 mg/dL (8.5-10.1); CREATININE 1.2 mg/dL (0.6-1.0); GFR 57.5; TOTAL BILIRUBIN 0.4 mg/dL (0.2-1.0); TOTAL PROTEIN 8.4 g/dL (6.4-8.2)
[2020-12-18 09:04] LABS: POTASSIUM 2.7 mmol/L (3.5-5.1)
[2020-12-19 16:13] LABS: COMMENT IMMUNOFIX SERUM Note: (.); IMMUNOGLOBULIN A 92 mg/dL (87-352); IMMUNOGLOBULIN G 2527 mg/dL (586-1602); IMMUNOGLOBULIN M 45 mg/dL (26-217); KAPPA FREE 83.3 mg/L (3.3-19.4); KAPPA LAMBDA RATIO 5.95 (0.26-1.65)
[2020-12-19 18:13] LABS: ALBUM 3.6 g/dL (2.9-4.4); ALPHA 1 0.3 g/dL (0.0-0.4); ALPHA 2 0.6 g/dL (0.4-1.0); GAMMA 2.3 g/dL (0.4-1.8); PROTEIN TOTAL 7.8 g/dL (6.0-8.5); SPEP AG RATIO 0.9 (0.7-1.7)
== END ==
LOC: ONCLAB 08:18
PROVIDERS: ATTEND Internal Medicine Hematology & Oncology
DX: C90.00 Multiple myeloma not having achieved remission (principal)
CPT/HCPCS: 36415; 80053; 82784; 83520; 84165; 85025; 86334

== ENCOUNTER → 2021-01-02 | Outpatient (CLI) | payer OTHER ==
[2020-07-15 11:10] VITALS: BP 130/76
[2021-01-02 09:04] LABS: BASO # 0.1 x10^3/uL (0.0-0.2); BASO % 1 % (0-3); EOS # 0.2 x10^3/uL (0.0-0.7); EOS % 4 % (0-3); HEMATOCRIT 39.8 % (36.0-47.0); HEMOGLOBIN 13.3 g/dL (12.0-15.5); LYMPH # 3.4 x10^3/uL (1.0-4.8); LYMPH % 57 % (24-48); MEAN CORPUSCULAR HEMOGLOBIN 29 pg (25-35); MEAN CORPUSCULAR HGB CONC 33 g/dL (31-37); MEAN CORPUSCULAR VOLUME 86 fL (79-100); MONO # 0.5 x10^3/uL (0.0-1.1); MONO % 9 % (0-9); NEUT # 1.8 x10^3/uL (1.8-7.7); NEUT % 30 % (31-73); PLATELET COUNT 261 x10^3/uL (140-400); RED BLOOD COUNT 4.64 x10^6/uL (3.50-5.40); RED CELL DISTRIBUTION WIDTH 16.6 % (11.5-14.5)
[2021-01-02 09:19] LABS: ALBUMIN 3.3 g/dL (3.4-5.0); ALBUMIN/GLOBULIN RATIO 0.6 (1.0-1.7); CALCIUM 8.5 mg/dL (8.5-10.1); CREATININE 1.1 mg/dL (0.6-1.0); GFR 63.6; TOTAL BILIRUBIN 0.3 mg/dL (0.2-1.0); TOTAL PROTEIN 8.5 g/dL (6.4-8.2)
[2021-01-02 09:22] LABS: POTASSIUM 2.8 mmol/L (3.5-5.1)
== END ==
LOC: ONCLAB 08:48
PROVIDERS: ATTEND Internal Medicine Hematology & Oncology
DX: C90.00 Multiple myeloma not having achieved remission (principal)
CPT/HCPCS: 80053; 82784; 83520; 84165; 85025; 86334

== ENCOUNTER → 2021-01-29 | Outpatient (CLI) | payer OTHER ==
[2020-07-15 11:10] VITALS: BP 130/76
[2021-01-29 09:20] LABS: BASO # 0.1 x10^3/uL (0.0-0.2); BASO % 1 % (0-3); EOS # 0.2 x10^3/uL (0.0-0.7); EOS % 3 % (0-3); HEMATOCRIT 39.8 % (36.0-47.0); HEMOGLOBIN 13.1 g/dL (12.0-15.5); LYMPH # 2.5 x10^3/uL (1.0-4.8); LYMPH % 50 % (24-48); MEAN CORPUSCULAR HEMOGLOBIN 28 pg (25-35); MEAN CORPUSCULAR HGB CONC 33 g/dL (31-37); MEAN CORPUSCULAR VOLUME 86 fL (79-100); MONO # 0.7 x10^3/uL (0.0-1.1); MONO % 14 % (0-9); NEUT # 1.6 x10^3/uL (1.8-7.7); NEUT % 31 % (31-73); PLATELET COUNT 258 x10^3/uL (140-400); RED BLOOD COUNT 4.61 x10^6/uL (3.50-5.40); RED CELL DISTRIBUTION WIDTH 17.5 % (11.5-14.5)
[2021-01-29 09:32] LABS: CALCIUM 8.9 mg/dL (8.5-10.1); CREATININE 1.1 mg/dL (0.6-1.0); GFR 63.6; POTASSIUM 3.6 mmol/L (3.5-5.1)
[2021-01-29 09:39] LABS: ALBUMIN 3.4 g/dL (3.4-5.0); ALBUMIN/GLOBULIN RATIO 0.7 (1.0-1.7); TOTAL BILIRUBIN 0.3 mg/dL (0.2-1.0); TOTAL PROTEIN 8.5 g/dL (6.4-8.2)
[2021-01-30 12:13] LABS: ALBUM 3.4 g/dL (2.9-4.4); ALPHA 1 0.3 g/dL (0.0-0.4); ALPHA 2 0.9 g/dL (0.4-1.0); BETA 1.2 g/dL (0.7-1.3); GAMMA 2.2 g/dL (0.4-1.8); PROTEIN TOTAL 7.9 g/dL (6.0-8.5); SPEP AG RATIO 0.8 (0.7-1.7)
[2021-01-30 14:12] LABS: COMMENT IMMUNOFIX SERUM Note: (.); IMMUNOGLOBULIN A 88 mg/dL (87-352); IMMUNOGLOBULIN G 2468 mg/dL (586-1602); IMMUNOGLOBULIN M 48 mg/dL (26-217)
[2021-01-30 16:11] LABS: KAPPA FREE 47.5 mg/L (3.3-19.4); LAMBDA FREE 10.1 mg/L (5.7-26.3)
== END ==
LOC: ONCLAB 08:37
PROVIDERS: ATTEND Internal Medicine Hematology & Oncology
DX: C90.00 Multiple myeloma not having achieved remission (principal)
CPT/HCPCS: 36415; 80053; 82784; 83520; 84165; 85025; 86334

== ENCOUNTER → 2021-02-26 | Outpatient (CLI) | payer OTHER ==
[2020-07-15 11:10] VITALS: BP 130/76
[2021-02-26 09:09] LABS: BASO # 0.1 x10^3/uL (0.0-0.2); BASO % 1 % (0-3); EOS # 0.1 x10^3/uL (0.0-0.7); EOS % 2 % (0-3); HEMATOCRIT 40.8 % (36.0-47.0); HEMOGLOBIN 13.3 g/dL (12.0-15.5); LYMPH # 2.8 x10^3/uL (1.0-4.8); LYMPH % 55 % (24-48); MEAN CORPUSCULAR HEMOGLOBIN 28 pg (25-35); MEAN CORPUSCULAR HGB CONC 33 g/dL (31-37); MEAN CORPUSCULAR VOLUME 86 fL (79-100); MONO # 0.7 x10^3/uL (0.0-1.1); MONO % 13 % (0-9); NEUT # 1.5 x10^3/uL (1.8-7.7); NEUT % 30 % (31-73); PLATELET COUNT 267 x10^3/uL (140-400); RED BLOOD COUNT 4.75 x10^6/uL (3.50-5.40); RED CELL DISTRIBUTION WIDTH 18.6 % (11.5-14.5); WHITE BLOOD COUNT 5.2 x10^3/uL (4.0-11.0)
[2021-02-26 09:24] LABS: CALCIUM 8.8 mg/dL (8.5-10.1); POTASSIUM 3.3 mmol/L (3.5-5.1)
[2021-02-26 09:31] LABS: ALBUMIN 3.1 g/dL (3.4-5.0); ALBUMIN/GLOBULIN RATIO 0.6 (1.0-1.7); TOTAL BILIRUBIN 0.3 mg/dL (0.2-1.0); TOTAL PROTEIN 8.3 g/dL (6.4-8.2)
== END ==
LOC: ONCLAB 08:26
PROVIDERS: ATTEND Internal Medicine Hematology & Oncology
DX: C90.00 Multiple myeloma not having achieved remission (principal)
CPT/HCPCS: 36415; 80053; 85025

== ENCOUNTER → 2021-03-20 | Outpatient (CLI) | payer OTHER ==
[2020-07-15 11:10] VITALS: BP 130/76
[2021-03-20 10:14] LABS: CALCIUM 8.8 mg/dL (8.5-10.1); CREATININE 1.2 mg/dL (0.6-1.0); GFR 57.5; POTASSIUM 3.9 mmol/L (3.5-5.1)
== END ==
LOC: LAB 09:29
PROVIDERS: ATTEND Family Medicine
DX: E11.9 Type 2 diabetes mellitus without complications (principal)
CPT/HCPCS: 36415; 80048; 83036

== ENCOUNTER → 2021-03-26 | Outpatient (CLI) | payer OTHER ==
[2020-07-15 11:10] VITALS: BP 130/76
[2021-03-26 09:09] LABS: BASO # 0.1 x10^3/uL (0.0-0.2); BASO % 1 % (0-3); EOS # 0.1 x10^3/uL (0.0-0.7); EOS % 2 % (0-3); HEMATOCRIT 41.8 % (36.0-47.0); LYMPH # 3.1 x10^3/uL (1.0-4.8); LYMPH % 61 % (24-48); MEAN CORPUSCULAR HEMOGLOBIN 29 pg (25-35); MEAN CORPUSCULAR HGB CONC 34 g/dL (31-37); MEAN CORPUSCULAR VOLUME 87 fL (79-100); MONO # 0.6 x10^3/uL (0.0-1.1); MONO % 11 % (0-9); NEUT # 1.3 x10^3/uL (1.8-7.7); NEUT % 25 % (31-73); PLATELET COUNT 276 x10^3/uL (140-400); RED BLOOD COUNT 4.79 x10^6/uL (3.50-5.40); RED CELL DISTRIBUTION WIDTH 19.2 % (11.5-14.5); WHITE BLOOD COUNT 5.1 x10^3/uL (4.0-11.0)
[2021-03-26 09:45] LABS: CALCIUM 8.6 mg/dL (8.5-10.1); CREATININE 1.3 mg/dL (0.6-1.0); GFR 52.5; POTASSIUM 3.9 mmol/L (3.5-5.1)
[2021-03-26 09:49] LABS: ALBUMIN 3.2 g/dL (3.4-5.0); ALBUMIN/GLOBULIN RATIO 0.7 (1.0-1.7); TOTAL BILIRUBIN 0.3 mg/dL (0.2-1.0)
[2021-03-27 14:12] LABS: COMMENT IMMUNOFIX SERUM Note: (.); IMMUNOGLOBULIN A 97 mg/dL (87-352); IMMUNOGLOBULIN G 2363 mg/dL (586-1602); IMMUNOGLOBULIN M 47 mg/dL (26-217)
[2021-03-27 17:12] LABS: KAPPA FREE 39.9 mg/L (3.3-19.4); KAPPA LAMBDA RATIO 3.73 (0.26-1.65); LAMBDA FREE 10.7 mg/L (5.7-26.3)
[2021-03-27 18:10] LABS: ALBUM 3.6 g/dL (2.9-4.4); ALPHA 1 0.2 g/dL (0.0-0.4); ALPHA 2 0.7 g/dL (0.4-1.0); GAMMA 2.1 g/dL (0.4-1.8); PROTEIN TOTAL 7.5 g/dL (6.0-8.5); SPEP AG RATIO 0.9 (0.7-1.7)
== END ==
LOC: ONCLAB 08:35
PROVIDERS: ATTEND Internal Medicine Hematology & Oncology
DX: C90.00 Multiple myeloma not having achieved remission (principal)
CPT/HCPCS: 36415; 80053; 82784; 83520; 84165; 85025; 86334

== ENCOUNTER → 2021-04-30 | Outpatient (CLI) | payer OTHER ==
[2020-07-15 11:10] VITALS: BP 130/76
[~2021-04-30] MED LIST changes: +POTA-121 PO
[2021-04-30 09:07] LABS: CALCIUM 8.5 mg/dL (8.5-10.1); CREATININE 1.4 mg/dL (0.6-1.0); GFR 48.2
[2021-04-30 09:13] LABS: ALBUMIN 3.1 g/dL (3.4-5.0); ALBUMIN/GLOBULIN RATIO 0.6 (1.0-1.7); TOTAL BILIRUBIN 0.4 mg/dL (0.2-1.0); TOTAL PROTEIN 8.1 g/dL (6.4-8.2)
[2021-04-30 09:20] LABS: BASO # 0.1 x10^3/uL (0.0-0.2); BASO % 2 % (0-3); EOS # 0.1 x10^3/uL (0.0-0.7); EOS % 2 % (0-3); HEMOGLOBIN 13.5 g/dL (12.0-15.5); LYMPH # 2.4 x10^3/uL (1.0-4.8); LYMPH % 57 % (24-48); MEAN CORPUSCULAR HEMOGLOBIN 29 pg (25-35); MEAN CORPUSCULAR HGB CONC 33 g/dL (31-37); MEAN CORPUSCULAR VOLUME 89 fL (79-100); MONO # 0.4 x10^3/uL (0.0-1.1); MONO % 10 % (0-9); NEUT # 1.3 x10^3/uL (1.8-7.7); NEUT % 30 % (31-73); PLATELET COUNT 287 x10^3/uL (140-400); RED BLOOD COUNT 4.62 x10^6/uL (3.50-5.40); RED CELL DISTRIBUTION WIDTH 18.5 % (11.5-14.5); WHITE BLOOD COUNT 4.2 x10^3/uL (4.0-11.0)
[2021-05-01 12:14] LABS: KAPPA FREE 33.1 mg/L (3.3-19.4); KAPPA LAMBDA RATIO 3.76 (0.26-1.65); LAMBDA FREE 8.8 mg/L (5.7-26.3)
[2021-05-01 15:31] LABS: ALBUM 3.3 g/dL (2.9-4.4); ALPHA 1 0.2 g/dL (0.0-0.4); ALPHA 2 0.8 g/dL (0.4-1.0); COMMENT IMMUNOFIX SERUM Note: (.); GAMMA 2.1 g/dL (0.4-1.8); IMMUNOGLOBULIN A 98 mg/dL (87-352); IMMUNOGLOBULIN G 2457 mg/dL (586-1602); IMMUNOGLOBULIN M 48 mg/dL (26-217); PROTEIN TOTAL 7.3 g/dL (6.0-8.5); SPEP AG RATIO 0.8 (0.7-1.7)
== END ==
LOC: ONCLAB 08:03
PROVIDERS: ATTEND Internal Medicine Hematology & Oncology
DX: C90.00 Multiple myeloma not having achieved remission (principal)
CPT/HCPCS: 36415; 80053; 82784; 83520; 84165; 85025; 86334

== ENCOUNTER 2021-05-25 10:07 | Emergency (ER) | payer OTHER ==
[~2021-05-25] VITALS: Ht 152.4 cm; Wt 92.0 kg
[2021-05-25 10:12] VITALS: BP 181/67
[2021-05-25] MEDS ORDERED: CEPH500C PO (10:25)
--- NOTE | 2021-05-25 10:26 | PHYS DOC ---
Past Medical History Past Medical History: Diabetes-Type II, Hypertension Additional Past Medical Histor: Hypokalemia, MULTIPLE MYELOMA (ARIANNA RESENDIZ ARRANGING [employer]ERAL DIRECTOR) Past Surgical History: Other Additional Past Surgical Histo: Thigh (ARIANNA RESENDIZ [employer]ANGING [employer]ER[employer] DIRECTOR) Smoking Status: Never Smoker Alcohol Use: Rarely Drug Use: None (ARIANNA RESENDIZ ARRANGING [employer]ER[employer] DIRECTOR) General Adult EDM: Chief Complaint: LACERATION/AVULSION HPI: HPI: Patient is a 50 year old female who presents with was cutting cilantro at home when the knife came off half of her left index finger nail. There is no laceration. The rest the nail is intact. Bleeding is controlled. Patient rates her pain at an 8 out of 10 at this time. Patient has a history of multiple myeloma, hypertension diabetes. She is due for a tetanus shot. (ARIANNA RESENDIZ [employer]ER[employer] DIRECTOR) Review of Systems: Review of Systems: Constitutional: Denies fever or chills. [] Eyes: Denies change in visual acuity. [] HENT: Denies nasal congestion or sore throat. [] Respiratory: Denies cough or shortness of breath. [] Cardiovascular: Denies chest pain or edema. [] GI: Denies abdominal pain, nausea, vomiting, bloody stools or diarrhea. [] : Denies dysuria. [] Musculoskeletal: Denies back pain or joint pain. + Left index singular pain [] Integument: Denies rash. + Left index finger laceration [] Neurologic: Denies headache, focal weakness or sensory changes. [] Endocrine: Denies polyuria or polydipsia. [] Lymphatic: Denies swollen glands. [] Psychiatric: Denies depression or anxiety. [] (ARIANNA RESENDIZ M [employer]ANGING [employer]ERAL DIRECTOR) Heart Score: C/O Chest Pain: No (ARIANNA RESENDIZ [employer] DIRECTOR) Allergies: Allergies: Allergies Coded Allergies Type Severity Reaction Last Updated Verified codeine Adverse Reaction Intermediate Hallucinations 02/08/17 Yes (ARIANNA RESENDIZ [employer]) Physical Exam: PE: Constitutional: Well developed, well nourished, no acute distress, non-toxic appearance. [] HENT: Normocephalic, atraumatic, bilateral external ears normal, oropharynx moist, no oral exudates, nose normal. [] Eyes: PERRLA, EOMI, conjunctiva normal, no discharge. [] Neck: Normal range of motion, no tenderness, supple, no stridor. [] Cardiovascular:Heart rate regular rhythm, no murmur [] Lungs & Thorax: Bilateral breath sounds clear to auscultation [] Abdomen: Bowel sounds normal, soft, no tenderness, no masses, no pulsatile masses. [] Skin: Warm, dry, no erythema, no rash. Half of left index finger nail missing after being sliced off with a knife. No laceration to nailbed or actual finger. [] Back: No tenderness, no CVA tenderness. [] Extremities: No tenderness, no cyanosis, no clubbing, ROM intact, no edema. [] Neurologic: Alert and oriented X 3, normal motor function, normal sensory function, no focal deficits noted. [] Psychologic: Affect normal, judgement normal, mood normal. [] (ARIANNA RESENDIZ APRN) Current Patient Data: Vital Signs: Vital Signs Date Time Temp Pulse Resp B/P (MAP) Pulse Ox O2 Delivery O2 Flow Rate FiO2 05/25/21 10:12 181/67 (105) (ARIANNA RESENDIZ APRN) EKG: EKG: [] (ARIANNA RESENDIZ APRN) Radiology/Procedures: Radiology/Procedures: [] (ARIANNA RESENDIZ APRN) Course & Med Decision Making: Course & Med Decision Making Pertinent Labs and Imaging studies reviewed. (See chart for details) See HPI. Alert and oriented x4. Ambulatory steady gait. Speaks in full clear sentences. Radial pulse strong present. Skin pink warm and dry. Nailbed int act. No laceration to the nailbed. Patient given tetanus shot. Patient's finger cleaned with saline and chlorhexidine. Antibiotic ointment placed in finger is dressed. Full range of motion of all joints. No joint laxity. No deformity. Patient will be placed on a antibiotic due to her having cancer and undergoing chemo at this time. She is also diabetic. [] (ARIANNA RESENDIZ APRN) Course & Med Decision Making I have reviewed and was available for consultation in the emergency department for this patient that was seen by midlevel provider. Agree with plan. Ludwig Prasad DO (LUDWIG PRASAD DO) [place] Disclaimer: [place] Disclaimer: This electronic medical record was generated, in whole or in part, using a voice recognition dictation system. (ARIANNA RESENDIZ APRN) Departure Departure Impression: Primary Impression: Laceration Disposition: HOME / SELF CARE / HOMELESS Condition: STABLE Referrals: DAVID SHERWOOD MD (PCP) Patient Instructions: Fingertip Laceration, Laceration Care, Adult Additional Instructions: Keep the area clean and covered. Watch for signs of infection such as redness, drainage, swelling and increased pain. Keep antibiotic ointment on the area. Take antibiotic as prescribed. Scripts Cephalexin (KEFLEX) 500 Mg Capsule 1 CAP PO TID, #30 CAP Prov: ARIANNA RESENDIZ APRN 05/25/21 ARIANNA RESENDIZ APRN May 25, 2021 10:26 LUDWIG PRASAD DO May 25, 2021 10:49
[2021-05-25] MEDS: NEOMY/BACITR/POLYMYXIN OINT PACKET. TP ONE (10:31)
[2021-05-25] MEDS: DIPH,PERTUSS(ACELL),TET VAC/PF 0.5 ML SYRINGE. VAX IM ONE (10:32)
== END 2021-05-25 11:00 | disposition home or self-care (01) ==
LOC: ER 10:07
DX: S61.211A Laceration without foreign body of left index finger without damage to nail, initial encounter (principal); E11.9 Type 2 diabetes mellitus without complications; I10 Essential (primary) hypertension; Z88.5 Allergy status to narcotic agent; W26.0XXA Contact with knife, initial encounter; Y93.89 Activity, other specified; Y92.89 Other specified places as the place of occurrence of the external cause; Y99.8 Other external cause status
CPT/HCPCS: 29130; 90471; 90715; 99283

== ENCOUNTER → 2021-06-01 | Outpatient (CLI) | payer OTHER ==
[2021-05-25 10:12] VITALS: BP 181/67
[~2021-06-01] MED LIST changes: +CEPH500C PO
[2021-06-01 08:55] LABS: BASO # 0.1 x10^3/uL (0.0-0.2); BASO % 1 % (0-3); EOS # 0.2 x10^3/uL (0.0-0.7); EOS % 4 % (0-3); HEMOGLOBIN 13.8 g/dL (12.0-15.5); LYMPH # 2.3 x10^3/uL (1.0-4.8); LYMPH % 52 % (24-48); MEAN CORPUSCULAR HEMOGLOBIN 30 pg (25-35); MEAN CORPUSCULAR HGB CONC 34 g/dL (31-37); MEAN CORPUSCULAR VOLUME 90 fL (79-100); MONO # 0.4 x10^3/uL (0.0-1.1); MONO % 9 % (0-9); NEUT # 1.5 x10^3/uL (1.8-7.7); NEUT % 34 % (31-73); PLATELET COUNT 244 x10^3/uL (140-400); RED BLOOD COUNT 4.56 x10^6/uL (3.50-5.40); RED CELL DISTRIBUTION WIDTH 18.2 % (11.5-14.5); WHITE BLOOD COUNT 4.4 x10^3/uL (4.0-11.0)
[2021-06-01 09:03] LABS: CALCIUM 8.6 mg/dL (8.5-10.1); CREATININE 1.1 mg/dL (0.6-1.0); GFR 63.6
[2021-06-01 09:17] LABS: ALBUMIN 3.4 g/dL (3.4-5.0); ALBUMIN/GLOBULIN RATIO 0.7 (1.0-1.7); TOTAL BILIRUBIN 0.4 mg/dL (0.2-1.0); TOTAL PROTEIN 8.4 g/dL (6.4-8.2)
[2021-06-02 14:26] LABS: KAPPA FREE 42.5 mg/L (3.3-19.4); KAPPA LAMBDA RATIO 3.86 (0.26-1.65)
== END ==
LOC: ONCLAB 08:20
PROVIDERS: ATTEND Internal Medicine Hematology & Oncology
DX: C90.00 Multiple myeloma not having achieved remission (principal)
CPT/HCPCS: 36415; 80053; 83520; 85025

== ENCOUNTER → 2021-06-22 | Outpatient (CLI) | payer OTHER ==
[2021-05-25 10:12] VITALS: BP 181/67
[2021-06-22 08:36] LABS: CALCIUM 8.7 mg/dL (8.5-10.1); CREATININE 1.1 mg/dL (0.6-1.0); GFR 63.6; POTASSIUM 3.9 mmol/L (3.5-5.1)
[2021-06-22 08:37] LABS: BASO % 1 % (0-3); EOS # 0.2 x10^3/uL (0.0-0.7); EOS % 3 % (0-3); HEMATOCRIT 40.4 % (36.0-47.0); HEMOGLOBIN 13.4 g/dL (12.0-15.5); LYMPH % 68 % (24-48); MEAN CORPUSCULAR HEMOGLOBIN 30 pg (25-35); MEAN CORPUSCULAR HGB CONC 33 g/dL (31-37); MEAN CORPUSCULAR VOLUME 89 fL (79-100); MONO # 0.5 x10^3/uL (0.0-1.1); MONO % 9 % (0-9); NEUT # 1.2 x10^3/uL (1.8-7.7); NEUT % 20 % (31-73); PLATELET COUNT 214 x10^3/uL (140-400); RED BLOOD COUNT 4.53 x10^6/uL (3.50-5.40); RED CELL DISTRIBUTION WIDTH 16.8 % (11.5-14.5); WHITE BLOOD COUNT 5.9 x10^3/uL (4.0-11.0)
[2021-06-22 08:39] LABS: ALBUMIN 3.5 g/dL (3.4-5.0); ALBUMIN/GLOBULIN RATIO 0.7 (1.0-1.7); TOTAL BILIRUBIN 0.3 mg/dL (0.2-1.0); TOTAL PROTEIN 8.5 g/dL (6.4-8.2)
[2021-06-22 11:43] LABS: % ATYL 2 % (0-0); % EOS 3 % (0-5); % LYMPHS 75 % (24-48); % MONOS 8 % (0-10); % SEGS 12 % (35-66); PLT ESTIMATE ADEQUATE (ADEQUATE)
[2021-06-23 13:15] LABS: COMMENT IMMUNOFIX SERUM Note: (.); IMMUNOGLOBULIN A 102 mg/dL (87-352); IMMUNOGLOBULIN G 2613 mg/dL (586-1602); IMMUNOGLOBULIN M 47 mg/dL (26-217)
[2021-06-23 14:15] LABS: ALBUM 3.6 g/dL (2.9-4.4); ALPHA 1 0.3 g/dL (0.0-0.4); ALPHA 2 0.8 g/dL (0.4-1.0); BETA 1.2 g/dL (0.7-1.3); GAMMA 2.1 g/dL (0.4-1.8); SPEP AG RATIO 0.8 (0.7-1.7)
[2021-06-24 06:12] LABS: KAPPA FREE 39.6 mg/L (3.3-19.4); KAPPA LAMBDA RATIO 4.04 (0.26-1.65); LAMBDA FREE 9.8 mg/L (5.7-26.3)
== END ==
LOC: ONCLAB 08:04
PROVIDERS: ATTEND Physician Assistant
DX: C90.00 Multiple myeloma not having achieved remission (principal)
CPT/HCPCS: 36415; 80053; 82784; 83520; 84165; 85007; 85025; 86334

== ENCOUNTER → 2021-06-30 | Outpatient (CLI) | payer OTHER ==
[2021-06-30 08:34] LABS: BASO % 1 % (0-3); EOS # 0.1 x10^3/uL (0.0-0.7); EOS % 2 % (0-3); HEMATOCRIT 40.9 % (36.0-47.0); HEMOGLOBIN 13.3 g/dL (12.0-15.5); LYMPH # 3.8 x10^3/uL (1.0-4.8); LYMPH % 62 % (24-48); MEAN CORPUSCULAR HEMOGLOBIN 29 pg (25-35); MEAN CORPUSCULAR HGB CONC 33 g/dL (31-37); MEAN CORPUSCULAR VOLUME 90 fL (79-100); MONO # 0.6 x10^3/uL (0.0-1.1); MONO % 10 % (0-9); NEUT # 1.6 x10^3/uL (1.8-7.7); NEUT % 26 % (31-73); PLATELET COUNT 255 x10^3/uL (140-400); RED BLOOD COUNT 4.57 x10^6/uL (3.50-5.40); RED CELL DISTRIBUTION WIDTH 17.1 % (11.5-14.5); WHITE BLOOD COUNT 6.2 x10^3/uL (4.0-11.0)
[2021-06-30 08:39] LABS: CALCIUM 8.7 mg/dL (8.5-10.1); CREATININE 1.1 mg/dL (0.6-1.0); GFR 63.6; POTASSIUM 3.6 mmol/L (3.5-5.1)
[2021-06-30 08:43] LABS: ALBUMIN 3.3 g/dL (3.4-5.0); ALBUMIN/GLOBULIN RATIO 0.7 (1.0-1.7); TOTAL BILIRUBIN 0.2 mg/dL (0.2-1.0)
== END ==
LOC: ONCLAB 08:18
PROVIDERS: ATTEND Internal Medicine Hematology & Oncology
DX: C90.00 Multiple myeloma not having achieved remission (principal)
CPT/HCPCS: 36415; 80053; 85025

== ENCOUNTER → 2021-08-03 | Outpatient (CLI) | payer OTHER ==
[2021-08-03 08:51] LABS: BASO % 1 % (0-3); EOS # 0.1 x10^3/uL (0.0-0.7); EOS % 2 % (0-3); HEMATOCRIT 38.6 % (36.0-47.0); HEMOGLOBIN 12.5 g/dL (12.0-15.5); LYMPH # 3.5 x10^3/uL (1.0-4.8); LYMPH % 58 % (24-48); MEAN CORPUSCULAR HEMOGLOBIN 29 pg (25-35); MEAN CORPUSCULAR HGB CONC 32 g/dL (31-37); MEAN CORPUSCULAR VOLUME 91 fL (79-100); MONO # 0.7 x10^3/uL (0.0-1.1); MONO % 12 % (0-9); NEUT # 1.6 x10^3/uL (1.8-7.7); NEUT % 27 % (31-73); PLATELET COUNT 206 x10^3/uL (140-400); RED BLOOD COUNT 4.26 x10^6/uL (3.50-5.40); RED CELL DISTRIBUTION WIDTH 17.1 % (11.5-14.5)
[2021-08-03 09:11] LABS: CALCIUM 8.6 mg/dL (8.5-10.1); POTASSIUM 3.7 mmol/L (3.5-5.1)
[2021-08-03 09:15] LABS: ALBUMIN 3.3 g/dL (3.4-5.0); ALBUMIN/GLOBULIN RATIO 0.6 (1.0-1.7); TOTAL BILIRUBIN 0.3 mg/dL (0.2-1.0); TOTAL PROTEIN 8.6 g/dL (6.4-8.2)
[2021-08-04 13:13] LABS: COMMENT IMMUNOFIX SERUM Note: (.); IMMUNOGLOBULIN A 89 mg/dL (87-352); IMMUNOGLOBULIN G 2312 mg/dL (586-1602); IMMUNOGLOBULIN M 44 mg/dL (26-217)
[2021-08-04 14:12] LABS: ALBUM 3.7 g/dL (2.9-4.4); ALPHA 1 0.3 g/dL (0.0-0.4); ALPHA 2 0.8 g/dL (0.4-1.0); BETA 1.1 g/dL (0.7-1.3); KAPPA FREE 35.2 mg/L (3.3-19.4); KAPPA LAMBDA RATIO 3.32 (0.26-1.65); LAMBDA FREE 10.6 mg/L (5.7-26.3); PROTEIN TOTAL 7.8 g/dL (6.0-8.5); SPEP AG RATIO 0.9 (0.7-1.7)
== END ==
LOC: ONCLAB 08:12
PROVIDERS: ATTEND Internal Medicine Hematology & Oncology
DX: C90.00 Multiple myeloma not having achieved remission (principal)
CPT/HCPCS: 36415; 80053; 82784; 83520; 84165; 85025; 86334

== ENCOUNTER → 2021-09-03 | Outpatient (CLI) | payer OTHER ==
[2021-09-03 08:41] LABS: CALCIUM 8.6 mg/dL (8.5-10.1); CREATININE 1.4 mg/dL (0.6-1.0); GFR 48.2; POTASSIUM 3.6 mmol/L (3.5-5.1)
[2021-09-03 08:47] LABS: ALBUMIN 3.3 g/dL (3.4-5.0); ALBUMIN/GLOBULIN RATIO 0.6 (1.0-1.7); TOTAL BILIRUBIN 0.3 mg/dL (0.2-1.0); TOTAL PROTEIN 8.4 g/dL (6.4-8.2)
[2021-09-03 08:48] LABS: BASO # 0.1 x10^3/uL (0.0-0.2); BASO % 1 % (0-3); EOS # 0.2 x10^3/uL (0.0-0.7); EOS % 3 % (0-3); HEMATOCRIT 41.2 % (36.0-47.0); HEMOGLOBIN 13.6 g/dL (12.0-15.5); LYMPH % 62 % (24-48); MEAN CORPUSCULAR HEMOGLOBIN 30 pg (25-35); MEAN CORPUSCULAR HGB CONC 33 g/dL (31-37); MEAN CORPUSCULAR VOLUME 90 fL (79-100); MONO # 0.7 x10^3/uL (0.0-1.1); MONO % 11 % (0-9); NEUT # 1.4 x10^3/uL (1.8-7.7); NEUT % 22 % (31-73); PLATELET COUNT 240 x10^3/uL (140-400); RED BLOOD COUNT 4.59 x10^6/uL (3.50-5.40); RED CELL DISTRIBUTION WIDTH 16.1 % (11.5-14.5); WHITE BLOOD COUNT 6.4 x10^3/uL (4.0-11.0)
[2021-09-03 09:33] LABS: % BASOS 3 % (0-3); % EOS 5 % (0-5); % LYMPHS 61 % (24-48); % MONOS 7 % (0-10); % SEGS 24 % (35-66); ANISOCYTOSIS SLIGHT; PLT ESTIMATE ADEQUATE (ADEQUATE)
[2021-09-04 14:29] LABS: ALBUM 3.5 g/dL (2.9-4.4); ALPHA 1 0.3 g/dL (0.0-0.4); ALPHA 2 0.8 g/dL (0.4-1.0); BETA 1.2 g/dL (0.7-1.3); COMMENT IMMUNOFIX SERUM Note: (.); GAMMA 2.2 g/dL (0.4-1.8); IMMUNOGLOBULIN A 96 mg/dL (87-352); IMMUNOGLOBULIN G 2373 mg/dL (586-1602); IMMUNOGLOBULIN M 43 mg/dL (26-217); SPEP AG RATIO 0.8 (0.7-1.7)
[2021-09-04 15:19] LABS: KAPPA FREE 34.4 mg/L (3.3-19.4); KAPPA LAMBDA RATIO 3.31 (0.26-1.65); LAMBDA FREE 10.4 mg/L (5.7-26.3)
== END ==
LOC: ONCLAB 08:00
PROVIDERS: ATTEND Internal Medicine Hematology & Oncology
DX: C90.00 Multiple myeloma not having achieved remission (principal)
CPT/HCPCS: 36415; 80053; 82784; 83520; 84165; 85007; 85025; 86334

== ENCOUNTER → 2021-09-29 | Outpatient (CLI) | payer OTHER ==
[2021-09-29 11:49] LABS: ALBUMIN 3.3 g/dL (3.4-5.0); ALBUMIN/GLOBULIN RATIO 0.6 (1.0-1.7); CALCIUM 8.5 mg/dL (8.5-10.1); CREATININE 1.1 mg/dL (0.6-1.0); GFR 63.6; POTASSIUM 3.6 mmol/L (3.5-5.1); TOTAL BILIRUBIN 0.2 mg/dL (0.2-1.0); TOTAL PROTEIN 8.6 g/dL (6.4-8.2)
[2021-09-30 03:11] LABS: HEMOGLOBIN A1C 7.5 % (4.8-5.6)
== END ==
LOC: LAB 10:43
PROVIDERS: ATTEND Family Medicine
DX: E11.9 Type 2 diabetes mellitus without complications (principal)
CPT/HCPCS: 36415; 80053; 83036

== ENCOUNTER → 2021-10-08 | Outpatient (CLI) | payer OTHER ==
[2021-10-08 08:32] LABS: BASO % 0 % (0-3); EOS # 0.1 x10^3/uL (0.0-0.7); EOS % 1 % (0-3); HEMOGLOBIN 13.3 g/dL (12.0-15.5); LYMPH # 2.2 x10^3/uL (1.0-4.8); LYMPH % 53 % (24-48); MEAN CORPUSCULAR HEMOGLOBIN 29 pg (25-35); MEAN CORPUSCULAR HGB CONC 33 g/dL (31-37); MEAN CORPUSCULAR VOLUME 89 fL (79-100); MONO # 0.3 x10^3/uL (0.0-1.1); MONO % 8 % (0-9); NEUT # 1.5 x10^3/uL (1.8-7.7); NEUT % 37 % (31-73); PLATELET COUNT 295 x10^3/uL (140-400); RED BLOOD COUNT 4.59 x10^6/uL (3.50-5.40); RED CELL DISTRIBUTION WIDTH 16.6 % (11.5-14.5); WHITE BLOOD COUNT 4.1 x10^3/uL (4.0-11.0)
[2021-10-08 08:52] LABS: ALBUMIN/GLOBULIN RATIO 0.6 (1.0-1.7); CREATININE 1.1 mg/dL (0.6-1.0); GFR 63.4; POTASSIUM 3.6 mmol/L (3.5-5.1); TOTAL BILIRUBIN 0.2 mg/dL (0.2-1.0)
[2021-10-09 13:13] LABS: COMMENT IMMUNOFIX SERUM Note: (.); IMMUNOGLOBULIN A 90 mg/dL (87-352); IMMUNOGLOBULIN G 2194 mg/dL (586-1602); IMMUNOGLOBULIN M 40 mg/dL (26-217)
[2021-10-09 14:13] LABS: ALBUM 3.3 g/dL (2.9-4.4); ALPHA 1 0.3 g/dL (0.0-0.4); ALPHA 2 0.8 g/dL (0.4-1.0); BETA 0.9 g/dL (0.7-1.3); GAMMA 1.7 g/dL (0.4-1.8); SPEP AG RATIO 0.9 (0.7-1.7)
[2021-10-09 15:14] LABS: KAPPA FREE 30.9 mg/L (3.3-19.4); KAPPA LAMBDA RATIO 3.03 (0.26-1.65); LAMBDA FREE 10.2 mg/L (5.7-26.3)
== END ==
LOC: ONCLAB 08:07
PROVIDERS: ATTEND Internal Medicine Hematology & Oncology
DX: C90.00 Multiple myeloma not having achieved remission (principal)
CPT/HCPCS: 36415; 80053; 82784; 83520; 84165; 85025; 86334

== ENCOUNTER → 2021-12-03 | Outpatient (CLI) | payer OTHER ==
[2021-12-03 08:44] LABS: BASO % 1 % (0-3); EOS # 0.1 x10^3/uL (0.0-0.7); EOS % 2 % (0-3); HEMOGLOBIN 12.9 g/dL (12.0-15.5); LYMPH # 2.1 x10^3/uL (1.0-4.8); LYMPH % 42 % (24-48); MEAN CORPUSCULAR HEMOGLOBIN 29 pg (25-35); MEAN CORPUSCULAR HGB CONC 33 g/dL (31-37); MEAN CORPUSCULAR VOLUME 88 fL (79-100); MONO # 0.5 x10^3/uL (0.0-1.1); MONO % 10 % (0-9); NEUT # 2.3 x10^3/uL (1.8-7.7); NEUT % 45 % (31-73); PLATELET COUNT 235 x10^3/uL (140-400); RED BLOOD COUNT 4.45 x10^6/uL (3.50-5.40); RED CELL DISTRIBUTION WIDTH 17.1 % (11.5-14.5)
[2021-12-03 09:15] LABS: ALBUMIN 3.3 g/dL (3.4-5.0); ALBUMIN/GLOBULIN RATIO 0.6 (1.0-1.7); CALCIUM 8.5 mg/dL (8.5-10.1); CREATININE 1.2 mg/dL (0.6-1.0); GFR 57.3; TOTAL BILIRUBIN 0.3 mg/dL (0.2-1.0); TOTAL PROTEIN 8.8 g/dL (6.4-8.2)
[2021-12-03 09:17] LABS: POTASSIUM 3.7 mmol/L (3.5-5.1)
[2021-12-04 11:13] LABS: ALBUM 3.4 g/dL (2.9-4.4); ALPHA 1 0.2 g/dL (0.0-0.4); ALPHA 2 0.7 g/dL (0.4-1.0); GAMMA 1.8 g/dL (0.4-1.8); PROTEIN TOTAL 7.1 g/dL (6.0-8.5); SPEP AG RATIO 0.9 (0.7-1.7)
[2021-12-04 13:27] LABS: COMMENT IMMUNOFIX SERUM Note: (.); IMMUNOGLOBULIN A 96 mg/dL (87-352); IMMUNOGLOBULIN G 2017 mg/dL (586-1602); IMMUNOGLOBULIN M 45 mg/dL (26-217)
[2021-12-04 14:22] LABS: KAPPA FREE 42.5 mg/L (3.3-19.4); KAPPA LAMBDA RATIO 2.61 (0.26-1.65); LAMBDA FREE 16.3 mg/L (5.7-26.3)
== END ==
LOC: ONCLAB 07:57
PROVIDERS: ATTEND Internal Medicine Hematology & Oncology
DX: C90.00 Multiple myeloma not having achieved remission (principal)
CPT/HCPCS: 36415; 80053; 82784; 83520; 84165; 85025; 86334

== ENCOUNTER → 2021-12-17 | Outpatient (CLI) | payer OTHER ==
[2021-12-17 08:40] LABS: BASO # 0.1 x10^3/uL (0.0-0.2); BASO % 1 % (0-3); EOS # 0.1 x10^3/uL (0.0-0.7); EOS % 2 % (0-3); HEMATOCRIT 39.9 % (36.0-47.0); HEMOGLOBIN 13.4 g/dL (12.0-15.5); LYMPH # 3.1 x10^3/uL (1.0-4.8); LYMPH % 53 % (24-48); MEAN CORPUSCULAR HEMOGLOBIN 29 pg (25-35); MEAN CORPUSCULAR HGB CONC 34 g/dL (31-37); MEAN CORPUSCULAR VOLUME 86 fL (79-100); MONO # 0.7 x10^3/uL (0.0-1.1); MONO % 11 % (0-9); NEUT % 33 % (31-73); PLATELET COUNT 302 x10^3/uL (140-400); RED BLOOD COUNT 4.63 x10^6/uL (3.50-5.40); RED CELL DISTRIBUTION WIDTH 16.7 % (11.5-14.5); WHITE BLOOD COUNT 5.9 x10^3/uL (4.0-11.0)
[2021-12-17 08:52] LABS: CREATININE 1.3 mg/dL (0.6-1.0); GFR 52.3; POTASSIUM 3.5 mmol/L (3.5-5.1)
[2021-12-17 08:59] LABS: ALBUMIN 3.1 g/dL (3.4-5.0); ALBUMIN/GLOBULIN RATIO 0.6 (1.0-1.7); TOTAL BILIRUBIN 0.4 mg/dL (0.2-1.0); TOTAL PROTEIN 8.7 g/dL (6.4-8.2)
== END ==
LOC: ONCLAB 07:58
PROVIDERS: ATTEND Internal Medicine Hematology & Oncology
DX: C90.00 Multiple myeloma not having achieved remission (principal)
CPT/HCPCS: 36415; 80053; 85025